=== PATIENT | female | born 1950 | race Caucasian/White ===

== ENCOUNTER 2018-07-09 13:00 | Inpatient (IN) | payer OTHER ==
--- OUTSIDE RECORDS SUMMARY | 2018-07-09 13:06 | XMS REPORT ---
:1950 [facility] Address [address] [place] [address] Dr. Kern [address] [place] [id number] Care Team Providers Name Role Phone Unavailable Unavailable Unavailable Problems This patient has no known problems. Allergies, Adverse Reactions, Alerts This patient has no known allergies or adverse reactions. Medications This patient has no known medications.
--- OUTSIDE RECORDS SUMMARY | 2018-07-09 13:06 | XMS REPORT | Clinical Summary ---
:1950 Author Organization [facility] Address [address] [place] [address] Care Team Providers Name Role Phone Satnam Isbell MD Primary Care Provider Allergies Active Allergy Reactions Severity Noted Date Comments Tape Adherent Other (See Comments) 11/01/2012 TEARS SKIN Medications Medication Sig Dispensed Refills Start Date End Date Status fluticasone-salmetero Inhale 2 puffs by 0 Active l (ADVAIR) 100-50 mouth via inhaler mcg/dose diskus 2 (two) times inhalerIndications: daily. COPD Associated with Chronic Bronchitis ALPRAZolam (XANAX XR) Take 0.5 mg by 0 Active 0.5 MG 24 hr tablet mouth 2 (two) times daily. tiotropium (SPIRIVA) Inhale 18 mcg 0 Active 18 mcg inhalation into the lungs capsule daily. ALBUTEROL SULFATE Inhale 2 puffs by 0 Active (VENTOLIN HFA INHL) mouth via inhaler 4 (four) times daily. levothyroxine Take 125 mcg by 0 Active (SYNTHROID, mouth daily. LEVOTHROID) 125 MCG tablet guaiFENesin (MUCINEX) Take 600 mg by 0 Active 600 mg 12 hr tablet mouth 2 (two) times daily. docusate sodium Take 100 mg by 0 Active (COLACE) 100 MG mouth 3 (three) capsule times daily. gabapentin Take 400 mg by 0 Active (NEURONTIN) 400 MG mouth 4 (four) capsuleIndications: times daily. Neuropathic Pain metoprolol Take 12.5 mg by 0 Active (LOPRESSOR) 25 MG mouth 2 (two) tablet times daily . oxyCODONE (OXYCONTIN) Take 40 mg by 0 Active 40 MG 12 hr tablet mouth every 12 (twelve) hours. predniSONE Take 10 mg (2 40 tablet 1 03/20/2016 Active (DELTASONE) 10 MG tabs) daily for 3 tablet days, and then 5 mg daily until told to stop by Pulmonary Medicine. traMADol (ULTRAM) 50 Take 1 tablet (50 20 tablet 0 03/20/2016 Active mg tablet mg total) by mouth every 8 (eight) hours as needed (moderate pain). Max Daily Amount: 150 mg escitalopram oxalate Take 1 tablet (10 30 tablet 1 03/20/2016 Active (LEXAPRO) 10 MG mg total) by tablet mouth daily. polyethylene glycol Take 17 grams 0 03/20/2016 Active (GLYCOLAX) 17 gram twice a day. packet tacrolimus (PROGRAF) 3 capsules AM/ 2 150 capsule 11 08/16/2016 Active 1 MG capsule capsules PM. Active Problems Problem Noted Date Anxiety 03/20/2016 Acute on chronic respiratory failure with hypoxia 03/20/2016 Elevated liver enzymes 03/20/2016 Slow transit constipation 03/20/2016 Chronic indwelling Sanchez catheter 03/20/2016 Hyponatremia 03/20/2016 Acute kidney injury 03/20/2016 Chronic diastolic CHF (congestive heart failure) 03/20/2016 Lung nodule 03/20/2016 COPD exacerbation 03/09/2016 Tibial fracture 05/17/2015 Immunosuppressed status 01/18/2014 Left bundle branch block 01/18/2014 Femur fracture, right 01/17/2014 Status post liver transplant 12/26/2012 Last Assessment & Plan: Stable LFT. Continue immunosuppresion Hepatitis C 12/26/2012 Last Assessment & Plan: HCV RNA undetectable 06/12. Likely has SVR. 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 Depression 12/26/2012 Last Assessment & Plan: Needs to see Dr. Baislio Cervical stenosis of spinal canal 11/20/2012 Last Assessment & Plan: S/p Laminectomy. To follow with Neurosurgery. Immunizations Name Dates Previously Given Next Due Influenza Three-TIV PF 5+ YRS 05/18/2015 Social History Tobacco Use Types Packs/Day Years Used Date Current Every Day Smoker 1 45 Smokeless Tobacco: Never Used Tobacco Cessation: Ready to Quit: Yes Alcohol Use Drinks/Week oz/Week Comments No Sex Assigned at Date Recorded Not on file Job Start Date Occupation Industry Not on file Not on file Not on file Travel History Travel Start Travel End No recent travel history available. Last Filed Vital Signs Not on file Plan of Treatment Health Maintenance Due Date Last Done Comments INFLUENZA VACCINE 01/28/2018 Implants Implanted Type Area Quarry Boss Device Shelf Model / Identifier Expiration Serial / Date Lot Sealant,Floseal Hemostatic Matrix 10ml - [id number] Cement/F N/A: Spine CARRIZALES 01/25/2014 [id number] / Implanted: Qty: 1 on 11/20/2012 by Micah Brown MD iller/Ad Cervical BIOSCIENCE / hesive FORMER FUSION [id number] MEDICAL Bone Graft,Sub Vitoss Foam Pack Bioactive 10cc - [id number] Cement/F N/A: Spine IRLANDA SPINE 05/30/2014 [id number] / Implanted: Qty: 1 on 11/20/2012 by Micah Brown MD iller/Ad Cervical / hesive [id number] K-Wire,Gamma3 Small [id number] - [id number] Fracture Right: Hip [place] 04/2018 [id number] / Implanted: Qty: 2 on 01/19/2014 by Ricky Suarez MD /[employer] / n [id number] Nail,Gamma3 Trochanteric Ti Kit [id number] 125d - [id number] Fracture Right: Irlanda 10/27/2018 [id number] / Implanted: Qty: 1 on 01/19/2014 by Ricky Suarez MD /[employer]ur [employer] / n [id number] Screw,Lag Gamma3 Ti 10.5x90mm - [id number] Fracture Right: [place] 2018 [id number] / Implanted: Qty: 1 on 01/19/2014 by Ricky Suarez MD /[employer] Fem[employer] / n [id number] Screw,Locking Fully Threaded 5x37.5mm Ti T2 - [id number] Fracture Right: Irlanda 07/27/2018 [id number] / Implanted: Qty: 1 on 01/19/2014 by Ricky Suarez MD /[employer] / n [id number] Screw,Polyaxial Canc Oasys 3.5x12mm - [id number] Spine N/A: Spine IRLANDA REBECA [id number] / Implanted: Qty: 8 on 11/20/2012 by Micah Brown MD Cervical / [id number] Gabriel,Oasys Ti 3.5x60mm - [id number] Spine N/A: Spine IRLANDA REBECA [id number] / Implanted: Qty: 2 on 11/20/2012 by Micah Brown MD Cervical / NOT AVAILABLE Lavern,Oasys - [id number] Spine N/A: Spine IRLANDA REBECA [id number] / Implanted: Qty: 8 on 11/20/2012 by Micah Brown MD Cervical / NOT AVAILABLE Results Not on fileafter 07/08/2017 Insurance Payer Benefit Plan / Group Subscriber ID Type Phone Address MEDICARE MEDICARE A B xxxxxxxxxx Medicare Advance Directives For more information, please contact:[address] [phone] Code Status Date Activated Date Inactivated Comments Full Code 03/09/2016 3:25 AM 03/20/2016 8:13 PM This code status was determined by: Patient Full Code 05/17/2015 8:01 PM 05/22/2015 4:28 PM This code status was determined by: Patient Full Code 01/17/2014 8:49 PM 01/23/2014 5:54 PM This code status was determined by: Patient Code ONE 11/20/2012 2:35 PM 11/26/2012 5:54 PM All possible means of support , including: cardiac massage, mechanical ventilation, and defibrillation will be used to support life.
[2018-07-09] MEDS ORDERED: CEFEPIME 1 GM/100 ML BAG IV ONE (13:55)
[2018-07-09] MEDS ORDERED: NA CHLORIDE 0.9% 2,000 ML ONE (13:55)
[2018-07-09] MEDS ORDERED: ATROPINE SULF 1 MG/10 ML SYR IV ONE (13:58)
[2018-07-09 14:02] LABS: Absolute Lymphocytes (CBC) 0.2 K/uL (0.7-4.9); Absolute Monocytes 0.3 K/uL (0.1-1.3); Absolute Neutrophil 12.7 K/uL (1.8-8.0); Basophils % 0.2 % (0-1.3); Eosinophils % 0.1 % (0-4.4); Hematocrit 30.9 % (36.0-45.0); Lymphocytes % 1.7 % (15.3-44.8); MPV 9.3 fL (7.6-11.3); Monocytes % 2.2 % (3.3-12.3); RBC Red Blood Cell Count 3.21 M/uL (3.86-4.86)
--- NOTE | 2018-07-09 14:20 | RAD REPORT ---
EXAM DESCRIPTION: CT - Head Brain Wo Cont - 07/09/2018 2:05 pm CLINICAL HISTORY: Hypotension, bradycardia, transient alteration of awareness COMPARISON: CT head July 2017 TECHNIQUE: Axial 5 mm thick images of the head were obtained without IV contrast. All CT scans are performed using dose optimization technique as appropriate and may include automated exposure control or mA/KV adjustment according to patient size. FINDINGS: No intracranial hemorrhage, mass, edema or shift of mid-line structures. No acute infarcti on changes seen. No abnormal extra-axial fluid collections. Atrophy and chronic ischemic changes are present matching the comparison. Ventricles are in proportion to volume loss. Partially visualized paranasal sinuses are clear. Right mastoid air cells are clear. There is partial opacification of the left mastoid air cells new from 2016. No acute bony findings. IMPRESSION: Atrophy and chronic ischemic change similar to comparison. No acute intracranial finding . Suspected left mastoiditis. Correlation is needed with any symptoms.
[2018-07-09 14:22] LABS: Protime INR 1.27
[2018-07-09 14:25] LABS: ALT/SGPT 21 U/L (12-78); AST/SGOT 13 U/L (15-37); Albumin 2.8 g/dL (3.4-5.0); Alkaline Phosphatase 121 U/L (45-117); BUN Blood Urea Nitrogen 94 mg/dL (7-18); Bicarbonate 37 mmol/L (21-32); Bilirubin Direct < 0.1 mg/dL (0-0.2); Bilirubin Total 0.3 mg/dL (0.2-1.0); CKMB Creatine Kinase MB 3.1 ng/mL (0.3-3.6); Creatine Phosphokinase 28 U/L (26-192); Glucose Level 143 mg/dL (74-106); Lipase 60 U/L (73-393); Potassium 5.5 mmol/L (3.5-5.1); Protein, Total 7.4 g/dL (6.4-8.2); Sodium Level 130 mmol/L (136-145); Troponin (Emerg Dept Use Only) 0.17 ng/mL (0.0-0.045)
--- NOTE | 2018-07-09 14:30 | RAD REPORT ---
EXAM DESCRIPTION: RAD - Chest Single View - 07/09/2018 2:15 pm CLINICAL HISTORY: Cough and congestion, hypotension, bradycardia, anorexia COMPARISON: July 2015 TECHNIQUE: AP portable chest image was obtained 1359 hours . FINDINGS: Lungs are fibrotic as a baseline. Focal mass density is present right suprahilar region. T his was not present on the prior study. Pleural effusion is present on the right relatively small in size. Wedge-shaped opacification in the medial right base could be atelectasis, infiltrate or a combi nation. There is a large left pleural effusion obscuring the left hemidiaphragm and left heart border . There is likely atelectasis at the left base. Heart size is mostly obscured probably enlarged. Uppe r lobe vasculature within normal limits. No pneumothorax. No acute bony abnormality seen. No acute ao rtic findings suspected. IMPRESSION: Large left pleural effusion with likely atelectasis in the left base. Mass and infiltrat e of the left base are not excluded. Infiltrate, atelectasis or a combination in the medial right lung base. Masslike density right suprahilar region. Mass an round pneumonia can have a similar appearance. Foll ow-up CT chest imaging would be recommended, preferably with IV contrast.
[2018-07-09] MEDS ORDERED: IPRATROPIUM BROM 0.5MG/2.5ML ONE (14:33)
[2018-07-09] MEDS ORDERED: ALBUTEROL 2.5 MG/3 ML NEB SOL ONE (14:33)
[2018-07-09 14:41] LABS: Thyroid Stimulating Hormone 2.87 uIU/mL (0.360-3.740)
[2018-07-09] MEDS ORDERED: NALOXONE 0.4 MG/ML VIAL ONE (14:44)
[2018-07-09] MEDS ORDERED: LORazepam 2 MG/ML VIAL ONE (15:08)
[2018-07-09] MEDS ORDERED: VANCOMYCIN/NS 1 gm 1 GM/250 ML BAG IVPB ONE (15:15)
--- NOTE | 2018-07-09 15:30 | ER ---
Nurse's Notes [facility] Name: Nyla Carreon Age: 67 yrs Sex: Female : 1950 Arrival Date: 07/09/2018 Time: 13:04 Bed 3 Private MD: Diagnosis: Non-ST elevation (NSTEMI) myocardial infarction;Altered mental status, unspecified Presentation: 07/09 13:09 Presenting complaint: EMS states: HYPOTENSIVE AND NATHAN, ANOREXIC x3 DAYS PER [facility] STAFF. Transition of care: patient was received from another setting of care (long-term care facility), [facility]. Onset of symptoms is unknown. Risk Assessment: Do you want to hurt yourself or someone else? Patient reports no desire to harm self or others. Initial Sepsis Screen: Does the patient meet any 2 criteria? Altered Mental Status. No. Patient's initial sepsis screen is negative. Does the patient have a suspected source of infection? Yes: Catheter related infection (Sanchez/dialysis/PICC/central line) If YES to both, name of provider notified: Pino Hameed MD. Care prior to arrival: None. 13:09 Method Of Arrival: EMS: [facility] bp 13:09 Acuity: BLADIMIR 2 bp Triage Assessment: 13:09 General: Appears unkempt, malnourished, Behavior is listless. Pain: Unable to use pain bp scale. Does not appear to understand pain scale. EENT: No deficits noted. Neuro: Level of Consciousness is obtunded, Oriented to none. Cardiovascular: Rhythm is sinus bradycardia. Respiratory: Airway is patent Respiratory effort is even, shallow, Respiratory pattern is regular, symmetrical. GI: No signs and/or symptoms were reported involving the gastrointestinal system. : Sanchez in place to gravity drainage Urine is cloudy. Derm: No deficits noted. Musculoskeletal: Circulation, motion, and sensation intact. Historical: - Allergies: 13:37 No Known Allergies; bp - Home Meds: 13:37 alprazolam 0.5 mg Oral Tb24 1 tab twice a day [Active]; aspirin 81 mg Oral chew 1 tab bp once daily [Active]; ascorbic acid (vitamin C) 500 mg tab [Active]; budesonide 0.5 mg/2 mL inhalation nbsp 2 mL 2 times per day [Active]; docusate sodium 100 mg Oral tab 1 tab 2 times per day [Active]; folic acid 1 mg Oral tab 1 tab once daily [Active]; furosemide 40 mg Oral tab 1 tab once daily [Active]; gabapentin 400 mg oral cap 1 cap every 6 hours [Active]; levothyroxine 125 mcg tab 1 tab once daily [Active]; metoprolol tartrate 25 mg Oral tab 1 tab 2 times per day [Active]; - PMHx: 13:37 Pneumonia; Hepatitis; Hypothyroidism; Anxiety; CHF; Renal Disease; bp - Immunization history:: Adult Immunizations up to date. - Social history:: Smoking status: Patient/guardian denies using tobacco, Patient/guardian denies using alcohol, street drugs, The patient lives with family, in a usp. - Ebola Screening: : Patient negative for fever greater than or equal to 101.5 degrees Fahrenheit, and additional compatible Ebola Virus Disease symptoms Patient denies exposure to infectious person Patient denies travel to an Ebola-affected area in the 21 days before illness onset No symptoms or risks identified at this time. - Family history:: not pertinent. Screenin:21 Abuse screen: Denies threats or abuse. Denies injuries from another. Nutritional bp screening: No deficits noted. Tuberculosis screening: No symptoms or risk factors identified. Fall Risk No fall in past 12 months (0 pts). Secondary diagnosis (15 points) Alzheimer's, No IV (0 pts). Ambulatory Aid- None/Bed Rest/Nurse Assist (0 pts). Gait- Normal/Bed Rest/Wheelchair (0 pts) Mental Status- Overestimates/Forgets Limitations (15 pts.). Total Fuentes Fall Scale indicates Low Risk Score (25-44 pts). Fall prevention measures have been instituted. Side Rails Up X 2 Placed close to Nursing Station Frequent Obs/Assesments occuring As available Patient and Family Educated on Fall Prevention Program and strategies. Assessment: 13:10 General: SEE TRIAGE NOTE. bp 14:00 Reassessment: PT CONTINUES LETHARGIC, PUPILS CONSTRICTED AND RESP SHALLOW. INFORMED. bp 15:00 Reassessment: AFTER NARCAN, PT MARKEDLY MORE AWAKE. AOx0, AGITATED AND PULLING AT PIV bp AND OXYGEN, INFORMED. 16:50 Reassessment: RT in room for ABG;. hj 16:55 Reassessment: provider decided to intubate pt with CO2 over 200's; RT paged and RSI kit hj prepped;. 17:00 Reassessment: provider in room; RT and nurses in room with needed equipments hj available;. Reassessment: etomidate 20/ succ 120 given;. 17:03 Reassessment: 7.5 ET tube inserted, 21 on the lip; auscultated with good breath sounds hj and good color;. 17:15 Reassessment: RESTRAINTS PLACED FOR PT SAFETY AND AIRWAY PROTECTION. PT AOx0, DOES NOT bp RESPOND TO VERBAL COMMANDS, UNABLE TO PARTICIPATE IN HEALTH CARE ACTIVITIES. RESTRAINT RELEASE CRITERIA EXPLAINED BUT PT UNABLE TO UNDERSTAND. 18:30 Reassessment: FAMILY AT B/S WITH MD. RESTRAINTS IN PLACE FOR AIRWAY PROTECTION AND PT bp SAFETY. PROPOFOL GTT \T\ 20MCG/KG/MIN. ICU ADMIT IN PROCESS. 19:00 General: Appears slender, Pt is sedated and intubated. Restraints remain in place for ea airway protection. Propofol at 20mcg/kg/min.. Respiratory: Airway via oral intubation Respiratory effort is even, unlabored, Respiratory pattern is regular, symmetrical. : Sanchez in place to gravity drainage. Derm: Skin is dry, Skin is pale, Skin temperature is cool Bear Hugger placed on pt. 20:21 Reassessment: Patient and/or family updated on plan of care and expected duration. Pain ea level reassessed. Pt remains sedated and intubated. No s/s of pain or discomfort noted at this time. Restraints remain in place. Pt on Bear Hugger. Report called to ICU. Vital Signs: 13:09 BP 94 / 49; Pulse 47; Resp 9; Temp 97.1; Pulse Ox 97% ; Weight 58.97 kg; bp 14:00 BP 94 / 52; Pulse 50; Resp 18; Pulse Ox 97% ; bp 15:00 BP 116 / 66; Pulse 56; Resp 15; Pulse Ox 97% ; bp 16:00 BP 108 / 76; Pulse 50; Resp 17; Pulse Ox 97% ; bp 17:00 BP 108 / 54; Pulse 45; Resp 17; Pulse Ox 100% ; bp 18:00 BP 121 / 91; Pulse 42; Resp 18; Pulse Ox 99% ; bp 19:15 BP 116 / 69; Pulse 43; Resp 16; Temp 90.8(R); Pulse Ox 100% on 40% FiO2 ETT vent; ea 19:45 BP 119 / 66; Pulse 43; Resp 16; Pulse Ox 100% on 40% FiO2 ETT vent; ea 20:00 BP 112 / 70; Pulse 46; Resp 16; Pulse Ox 100% on 40% FiO2 ETT vent; ea 21:00 BP 110 / 64; Pulse 49; Resp 16; Pulse Ox 100% on 40% FiO2 ETT vent; ea 19:15 Pt placed on bear hugger ea ED Course: 13:04 Patient arrived in ED. hj 13:06 Pino Hameed MD is Attending Physician. ma2 13:07 Lalo Burton, RN is Primary Nurse. bp 13:09 Arm band placed on. bp 13:11 Triage completed. bp 13:18 EKG done, by mixing technician. reviewed by Pino Hameed MD. vh 13:20 Inserted saline lock: 22 gauge in right antecubital area, using aseptic technique. bp Blood collected. 13:21 Patient has correct armband on for positive identification. Placed in gown. Bed in low bp position. Call light in reach. Side rails up X2. 13:40 Inserted saline lock: 20 gauge in left forearm, using aseptic technique. Blood ag collected. 13:45 Inserted saline lock: 20 gauge in left forearm, using aseptic technique. bp 14:02 CT completed. Pt tolerated procedure poorly. Patient taken to an exam room, Patient sw moved to CT via stretcher. Patient moved back from CT. 14:04 CT Head Brain wo Cont In Process Unspecified. EDMS 14:14 X-ray completed. Portable x-ray completed in exam room. Patient tolerated procedure jb2 well. 14:16 Chest Single View XRAY In Process Unspecified. EDMS 15:29 Rosy Brown MD is Hospitalizing Provider. ma2 17:18 Assisted provider with intubation using 7.5 mm ETT via oral route. ET tube secured at bp 21cm at the teeth. Set up intubation tray. Intubated by Pino Hameed MD Placement verified by CO2 detector w/ + color change, auscultating bilateral breath sounds, Patient tolerated well. 20:30 Patient admitted, IV remains in place. ea 21:19 Primary Nurse role handed off by Lalo Burton, RN ed1 Restraints: 17:15 Non-Violent Restraint: Order obtained. Initiated on July 09, 2018 at 17:15 Restraint bp Education provided to family/significant other/legally authorized lifeline representatives. Actions/Behavior observed: Confused/disoriented, has difficulty remembering/follow instructions, has impaired decision making, unable to follow instructions, repeated attempts to remove artifical airway/mechanical resp support, Less restrictive alternatives attempted: decrease environmental stimuli, 1:1 patient care, placed near Nurse station, reoriented to location, medications evaluated, lines/tubes covered, Alternative interventions: Ineffective. Clinical justification for use: airway protection, line protection, patient safety, Mental status: agitated/restless, confused, Cognition: poor judgement, poor safety awareness, poor attention/concentration, unable to follow commands, Circulation: Within defined parameters (based on Cardiovascular assessment) Skin integrity: Within defined parameters (based on Integumentary assessment) Signs of injury related to restraint: No injuries noted. Range of Motion (ROM): performed. Hydration/Food: patient declined. Elimination/Hygiene: with urinary catheter, Restraint status: Soft wrist restraint (Right) Started. Soft wrist restraint (Left) Started. Criteria to discontinue Restraint not met. Restraint continued. Administered Medications: 13:45 Drug: Cefepime 1 grams Route: IVPB; Rate: 200 ml/hr; Infused Over: 30 mins; Site: right bp forearm; 15:43 Follow up: IV Status: Completed infusion bp 13:59 Drug: Atropine 0.1 mg Route: IVP; Site: right forearm; bp 15:13 Follow up: Response: No adverse reaction bp 14:00 Drug: NS 0.9% (30 ml/kg) 30 ml/kg Route: IV; Rate: bolus; Site: left antecubital; hj 18:46 Follow up: IV Status: Completed infusion; IV Intake: 1769ml bp 14:30 Drug: Albuterol - atroVENT (3:1) (2.5 mg - 0.5 mg) 3 ml Route: Nebulizer; bp 15:17 Follow up: Response: No adverse reaction bp 14:30 Drug: NARcan 0.4 mg Route: IVP; Site: right antecubital; bp 16:01 Follow up: Response: Marked relief of symptoms bp 15:00 Drug: Ativan 2 mg Route: IVP; Site: right antecubital; bp 16:01 Follow up: Response: Marked relief of symptoms bp 15:43 Drug: vancoMYCIN 1 grams Route: IVPB; Infused Over: 2 hrs; Site: right antecubital; bp 16:05 Drug: Lovenox 80 mg Route: Sub-Q; Site: right lower abdomen; bp 16:17 Follow up: Response: No adverse reaction bp 16:12 Not Given (pt not tolerating po): Aspirin Chewable Tablet 324 mg PO once; 81 mg tablets bp x 4 17:00 Drug: Etomidate 20 mg Route: IVP; Site: left forearm; hj 17:19 Follow up: Response: No adverse reaction bp 17:00 Drug: Succinylcholine 120 mg Route: IVP; Site: left forearm; hj 17:32 Follow up: Response: No adverse reaction bp 17:45 Drug: Propofol 5 mcg/kg/min Route: IV; Rate: calculated rate; Site: right antecubital; bp Intake: 18:46 IV: 1769ml; Total: 1769ml. bp Outcome: 15:30 Decision to Hospitalize by Provider. ma2 20:41 Admitted to ICU accompanied by nurse, via stretcher, room 2, with oxygen, on monitor, ea with chart, Other Pt remains intubated, respiratory at bedside for assistance. Report called to Receiving nurse in ICU 20:41 Condition: stable ea 21:30 Patient left the ED. ea Signatures: Dispatcher [employer] EDMS Leonid Chávez Erika, RN RN ed1 Clarissa West Ana ag Warren, Shannon sw Joaquin, Henry, RN RN hj Antunez, Elena, RN RN ea Peltier, Brian, RN RN bp Alzahri, Mohammad, MD MD me2
--- NOTE | 2018-07-09 15:31 | EDPHYS ---
Physician Documentation [facility] Name: Nyla Carreon Age: 67 yrs Sex: Female : 1950 Arrival Date: 07/09/2018 Time: 13:04 Bed 3 Private MD: ED Physician Pino Hameed HPI: 07/09 13:20 This 67 yrs old Female presents to ER via EMS with complaints of Blood ma2 Pressure Problem. 13:20 This 67 yrs old Female presents to ER via EMS with complaints of Blood ma2 Pressure Problem. 13:20 The patient presents with decreased mental status, decreased responsiveness. Onset: The ma2 symptoms/episode began/occurred gradually, 3 day(s) ago. Possible causes: sepsis. Associated signs and symptoms: Pertinent negatives: ataxia, chest pain, diaphoresis. Current symptoms: In the emergency department the patient's symptoms are unchanged from the initial presentation. Patient's baseline: Neuro: alert but confused. The patient has experienced similar episodes in the past. Historical: - Allergies: 13:37 No Known Allergies; bp - Home Meds: 13:37 alprazolam 0.5 mg Oral Tb24 1 tab twice a day [Active]; aspirin 81 mg Oral chew 1 tab bp once daily [Active]; ascorbic acid (vitamin C) 500 mg tab [Active]; budesonide 0.5 mg/2 mL inhalation nbsp 2 mL 2 times per day [Active]; docusate sodium 100 mg Oral tab 1 tab 2 times per day [Active]; folic acid 1 mg Oral tab 1 tab once daily [Active]; furosemide 40 mg Oral tab 1 tab once daily [Active]; gabapentin 400 mg oral cap 1 cap every 6 hours [Active]; levothyroxine 125 mcg tab 1 tab once daily [Active]; metoprolol tartrate 25 mg Oral tab 1 tab 2 times per day [Active]; - PMHx: 13:37 Pneumonia; Hepatitis; Hypothyroidism; Anxiety; CHF; Renal Disease; bp - Immunization history:: Adult Immunizations up to date. - Social history:: Smoking status: Patient/guardian denies using tobacco, Patient/guardian denies using alcohol, street drugs, The patient lives with family, in a custodial. - Ebola Screening: : Patient negative for fever greater than or equal to 101.5 degrees Fahrenheit, and additional compatible Ebola Virus Disease symptoms Patient denies exposure to infectious person Patient denies travel to an Ebola-affected area in the 21 days before illness onset No symptoms or risks identified at this time. - Family history:: not pertinent. ROS: 13:20 Unable to obtain ROS due to altered mental status. ma2 15:30 Neck: Negative for injury, pain, and swelling. ma2 Exam: 13:20 Eyes: Pupils equal round and reactive to light, extra-ocular motions intact. Lids and ma2 lashes normal. Conjunctiva and sclera are non-icteric and not injected. Cornea within normal limits. Periorbital areas with no swelling, redness, or edema. Chest/axilla: Normal chest wall appearance and motion. Nontender with no deformity. No lesions are appreciated. Cardiovascular: Regular rate and rhythm with a normal S1 and S2. No gallops, murmurs, or rubs. Normal PMI, no JVD. No pulse deficits. Respiratory: Lungs have equal breath sounds bilaterally, clear to auscultation and percussion. No rales, rhonchi or wheezes noted. No increased work of breathing, no retractions or nasal flaring. Abdomen/GI: Soft, non-tender, with normal bowel sounds. No distension or tympany. No guarding or rebound. No evidence of tenderness throughout. 13:20 Neuro: Orientation: unable to test, Mentation: responsive to voice unable to follow commands. Vital Signs: 13:09 BP 94 / 49; Pulse 47; Resp 9; Temp 97.1; Pulse Ox 97% ; Weight 58.97 kg; bp 14:00 BP 94 / 52; Pulse 50; Resp 18; Pulse Ox 97% ; bp 15:00 BP 116 / 66; Pulse 56; Resp 15; Pulse Ox 97% ; bp 16:00 BP 108 / 76; Pulse 50; Resp 17; Pulse Ox 97% ; bp 17:00 BP 108 / 54; Pulse 45; Resp 17; Pulse Ox 100% ; bp 18:00 BP 121 / 91; Pulse 42; Resp 18; Pulse Ox 99% ; bp 19:15 BP 116 / 69; Pulse 43; Resp 16; Temp 90.8(R); Pulse Ox 100% on 40% FiO2 ETT vent; ea 19:45 BP 119 / 66; Pulse 43; Resp 16; Pulse Ox 100% on 40% FiO2 ETT vent; ea 20:00 BP 112 / 70; Pulse 46; Resp 16; Pulse Ox 100% on 40% FiO2 ETT vent; ea 21:00 BP 110 / 64; Pulse 49; Resp 16; Pulse Ox 100% on 40% FiO2 ETT vent; ea 19:15 Pt placed on bear hugger ea Procedures: 17:14 Intubation: Ventilated with 100% NRB prior to procedure. Intubated orally using # 4 ma2 Axel blade with 7.5 mm ETT. was successful on first attempt. Ventilated with ventilator. Tube secured with tape with ETT munoz Placement verified by CXR, Patient tolerated well. MDM: 13:06 Patient medically screened. ma2 13:20 Differential Diagnosis: alcohol intoxication, overdose, pneumonia, sepsis, UTI, volume ma2 depletion. 15:03 Data reviewed: vital signs, nurses notes. Counseling: I had a detailed discussion with oskar the patient and/or guardian regarding: the historical points, exam findings, and any diagnostic results supporting the discharge/admit diagnosis, the presence of at least one elevated blood pressure reading (>120/80) during this emergency department visit, the need for further work-up and treatment in the hospital. Response to treatment: the patient's symptoms have markedly improved after treatment. ED course: NSTEMI, EKG showing sinus bradycardia blood pressure is borderline, improved with ivf , pupils are pin pointed and her mentation improved with Narcan.. . 15:29 Physician consultation: Rosy Butler MD. ED course: improved with narcan has nstemi . ma 16:11 ED course: dr. butler advise to put admission orders under dr. slaughter and that she has osakr discussed the case with him and advise to order inpatients orders and antibiotics . 17:06 ED course: patient intubated for respiratory distress, and hypercapnia.. I updated dr. oskar Isbell about that . 17:07 ED course: i searched custodial note for code status, no mentions of DNR on nursing [facility] home or previous visit patient unable to answer questions and she has no known none reversible lung condition . 07/09 13:09 Order name: Urine Culture aa5 07/09 13:19 Order name: Basic Metabolic Panel [facility] 07/09 13:19 Order name: Blood Culture Adult (2) [facility] 07/09 13:19 Order name: CBC with Diff [facility] 07/09 13:19 Order name: Ckmb; Complete Time: 15:01 [facility] 07/09 13:19 Order name: CPK; Complete Time: 15:01 [facility] 07/09 13:19 Order name: Lactate; Complete Time: 15: [facility] 07/09 13:19 Order name: LFT's; Complete Time: 15:01 [facility] 07/09 13:19 Order name: Lipase; Complete Time: 15: [facility] 07/09 13:19 Order name: Procalcitonin; Complete Time: 15: [facility] 07/09 13:19 Order name: Protime (+inr); Complete Time: 15: [facility] 07/09 13:19 Order name: Ptt, Activated; Complete Time: 15: [facility] 07/09 13:19 Order name: Troponin (emerg Dept Use Only); Complete Time: 15: [facility] 07/09 13:19 Order name: Urine Microscopic Only [facility] 07/09 13:39 Order name: Basic Metabolic Panel; Complete Time: 15: EDMS 07/09 14:00 Order name: TSH; Complete Time: 15: [facility] 07/09 14:00 Order name: T4 Free; Complete Time: 15:01 [facility] 07/09 14:13 Order name: Urine Dipstick--Ancillary (enter results); Complete Time: 16:10 2 07/09 16:11 Order name: Arterial Blood Gas bp 07/09 16:16 Order name: Basic Metabolic Panel MS 07/09 16:16 Order name: Basic Metabolic Panel EDMS 07/09 16:16 Order name: CBC with Automated Diff EDMS 07/09 16:16 Order name: CBC with Automated Diff EDMS 07/09 16:16 Order name: NT PRO-BNP EDMS 07/09 16:16 Order name: NT PRO-BNP EDMS 07/09 16:16 Order name: Troponin I EDMS 07/09 16:16 Order name: Troponin I EDMS 07/09 16:16 Order name: Troponin I EDMS 07/09 16:22 Order name: Troponin I EDMS 07/09 16:22 Order name: Troponin I EDMS 07/09 13:19 Order name: Chest Single View XRAY; Complete Time: 15:01 pr2 07/09 13:19 Order name: Accucheck; Complete Time: 15:14 ma2 07/09 13:19 Order name: Cardiac monitoring; Complete Time: 13:23 ma2 07/09 13:19 Order name: EKG - Nurse/Tech; Complete Time: 13:22 ma2 07/09 13:19 Order name: IV Saline Lock - Large Bore; Complete Time: 14:00 ma2 07/09 13:19 Order name: Labs collected and sent; Complete Time: 14:00 ma2 07/09 13:19 Order name: O2 Per Protocol; Complete Time: 13:22 ma2 07/09 13:19 Order name: O2 Sat Monitoring; Complete Time: 13:22 ma2 07/09 13:19 Order name: Urine Dipstick-Ancillary (obtain specimen); Complete Time: 13:22 ma2 07/09 13:19 Order name: CT Head Brain wo Cont; Complete Time: 14:22 ma2 07/09 15:19 Order name: EKG Electrocardiogram EDMS 07/09 16:16 Order name: Regular EDMS 07/09 16:16 Order name: EKG Electrocardiogram EDMS 07/09 16:16 Order name: EKG Electrocardiogram EDMS 07/09 16:22 Order name: EKG Electrocardiogram EDMS 07/09 16:22 Order name: EKG Electrocardiogram EDMS 07/09 16:22 Order name: Troponin I EDMS 07/09 17:15 Order name: Chest Single View XRAY pr2 07/09 17:21 Order name: Restraint:Non-Violent; Complete Time: 17:55 bp 07/09 17:48 Order name: RAD EDMS Administered Medications: 13:45 Drug: Cefepime 1 grams Route: IVPB; Rate: 200 ml/hr; Infused Over: 30 mins; Site: right bp forearm; 15:43 Follow up: IV Status: Completed infusion bp 13:59 Drug: Atropine 0.1 mg Route: IVP; Site: right forearm; bp 15:13 Follow up: Response: No adverse reaction bp 14:00 Drug: NS 0.9% (30 ml/kg) 30 ml/kg Route: IV; Rate: bolus; Site: left antecubital; hj 18:46 Follow up: IV Status: Completed infusion; IV Intake: 1769ml bp 14:30 Drug: Albuterol - atroVENT (3:1) (2.5 mg - 0.5 mg) 3 ml Route: Nebulizer; bp 15:17 Follow up: Response: No adverse reaction bp 14:30 Drug: NARcan 0.4 mg Route: IVP; Site: right antecubital; bp 16:01 Follow up: Response: Marked relief of symptoms bp 15:00 Drug: Ativan 2 mg Route: IVP; Site: right antecubital; bp 16:01 Follow up: Response: Marked relief of symptoms bp 15:43 Drug: vancoMYCIN 1 grams Route: IVPB; Infused Over: 2 hrs; Site: right antecubital; bp 16:05 Drug: Lovenox 80 mg Route: Sub-Q; Site: right lower abdomen; bp 16:17 Follow up: Response: No adverse reaction bp 16:12 Not Given (pt not tolerating po): Aspirin Chewable Tablet 324 mg PO once; 81 mg tablets bp x 4 17:00 Drug: Etomidate 20 mg Route: IVP; Site: left forearm; hj 17:19 Follow up: Response: No adverse reaction bp 17:00 Drug: Succinylcholine 120 mg Route: IVP; Site: left forearm; hj 17:32 Follow up: Response: No adverse reaction bp 17:45 Drug: Propofol 5 mcg/kg/min Route: IV; Rate: calculated rate; Site: right antecubital; bp Disposition: 17:14 Critical Care:. ma2 Disposition: 07/09/18 15:30 Hospitalization ordered by Rosy Butler for Inpatient Admission. Preliminary diagnosis are Non-ST elevation (NSTEMI) myocardial infarction, Altered mental status, unspecified. - Bed requested for Intensive Care Unit. - Status is Inpatient Admission. ea - Condition is Stable. - Problem is new. - Symptoms are unchanged. UTI on Admission? No Critical care time excluding procedures: 17:14 Critical care time: Bedside Care: 30 minutes, Consultation: 20 minutes. Total time: 50 ma2 minutes Signatures: Dispatcher [employer] EDSandhya Christine Henry, RN RN hj Antunez, Elena, RN RN ea Peltier, Brian, RN RN bp Alzahri, Mohammad, MD MD ma2 Corrections: (The following items were deleted from the chart) 17:04 15:30 Hospitalization Ordered by Rosy Butler MD for Inpatient Admission. Preliminary ma2 diagnosis is Non-ST elevation (NSTEMI) myocardial infarction; Altered mental status, unspecified. Bed requested for Telemetry/MedSurg (Inpatient). Status is Inpatient Admission. Condition is Stable. Problem is new. Symptoms are unchanged. UTI on Admission? No. ma2 18:07 17:04 07/09/2018 15:30 Hospitalization Ordered by Rosy Butler MD for Inpatient bd Admission. Preliminary diagnosis is Non-ST elevation (NSTEMI) myocardial infarction; Altered mental status, unspecified. Bed requested for Intensive Care Unit. Status is Inpatient Admission. Condition is Stable. Problem is new. Symptoms are unchanged. UTI on Admission? No. ma2 21:30 18:07 07/09/2018 15:30 Hospitalization Ordered by Rosy Butler MD for Inpatient ea Admission. Preliminary diagnosis is Non-ST elevation (NSTEMI) myocardial infarction; Altered mental status, unspecified. Bed requested for Intensive Care Unit. Status is Inpatient Admission. Condition is Stable. Problem is new. Symptoms are unchanged. UTI on Admission? No. bd
[2018-07-09 15:56] LABS: Urine Blood TRACE (NEG); Urine Glucose NEGATIVE (NEG); Urine Protein 2+ (NEG); Urine Specific Gravity 1.025 (1.005-1.030)
[2018-07-09] MEDS ORDERED: ACETAMINOPHEN 500 MG TAB PO PRN (16:12)
[2018-07-09] MEDS ORDERED: ENOXAPARIN 80 MG/0.8 ML SQ ONE (16:25)
[2018-07-09] MEDS: AZITHROMYCIN IV 250 MG in NA CHLORIDE 0.9% 250 ML IVPB SCH (17:00)
[2018-07-09] MEDS ORDERED: RSI MEDICATION KIT IV ONE (17:05)
[2018-07-09] MEDS ORDERED: NA CHLORIDE 0.9% 1,000 ML ONE (17:05)
[2018-07-09 17:37] LABS: Arterial Blood Carboxyhemoglob 0.8 % (0-1.5); Blood Gas Oxyhemoglobin 96.8 % (94-97); Blood O2 Saturation 98.7 % (92-98.5)
--- NOTE | 2018-07-09 17:47 | RAD REPORT ---
EXAM DESCRIPTION: RAD - Chest Single View - 07/09/2018 5:41 pm CLINICAL HISTORY: tube placement Chest pain. COMPARISON: Chest Single View dated 07/09/2018; Chest Single View dated 08/03/2015 FINDINGS: Portable technique limits examination quality. Tip of the ET tube is above the champ. Small left pleural effusion is again noted. Right suprahilar density is again noted, without change since recent comparative study. Mildly impacted fracture the p roximal left humerus is present.
[2018-07-09] MEDS ORDERED: PROPOFOL 1,000 MG/100 ML VIAL IV ONE (17:57)
[2018-07-09 22:22] LABS: Blood Morphology Comment NOT SEEN (NOT SEEN); Platelet Estimate ADEQ
[2018-07-09 22:26] LABS: Urine Bacteria <20 /HPF (<20); Urine Culture Reflex Order NOT NEEDED; Urine Yeast MANY (NONE SEEN); Urine Yeast with Hyphae PRESENT
[2018-07-09 22:27] LABS: Urine RBC NONE SEEN /HPF (NONE SEEN)
[2018-07-10] MEDS ORDERED: PROPOFOL 1,000 MG/100 ML VIAL IV PRN (00:10)
[2018-07-10] MEDS ORDERED: NA CHLORIDE 0.9% 250 ML IV PRN (00:10)
[2018-07-10] MEDS: CEFTRIAXONE/SWI 1gm 1 GM/10 ML SYR IVP SCH ×3 (00:15→19:55)
[2018-07-10] MEDS: D5 0.45 NS 1,000 ML IV SCH ×3 (00:15→22:30)
--- NOTE | 2018-07-10 04:06 | HP ---
Date of Admission: 07/09/2018 History Of Present Illness: A 67-year-old female with multiple medical problems including liver leach splant status from hepatitis C back in 1998. She was in a [facility] and was brought by [facility] from the [facility]. The history from the emergency room physician and the nurse who received the patie nt from the [facility] people and with the [facility] papers is that the patient has pain for about 2-3 d ays, looked disoriented and feeling weak, and her blood pressure was not controlled. The patient was noted in the emergency room to have decreased responsiveness. The patient on alprazolam and it was thought that the patient may have been overmedicated on that medicine. She was given Narcan and as p er the ER the patient's mental status was awake and she was more alert. However with her ABGs that w ere drawn at 2 L nasal prong, the patient showed acute respiratory failure with hypoxia and hypercapn ia and so she was intubated. At this point, the patient is intubated on mechanical ventilation and s he is sedated. No more history or review of systems could be taken. Past Medical History: 1.As above liver transplant status. 2.Congestive heart failure. 3.Coronary artery disease. 4.Hypothyroidism. 5.Hypertension. 6.COPD from history of heavy smoking in the past. 7.Anxiety, for which the patient takes alprazolam. 8.Chronic renal insufficiency. Social History: Stopped smoking, used to be heavy smoker. No alcohol or IV drug abuse history. Family History: Noncontributing. Medications: Include alprazolam 0.5 mg p.o. b.i.d., aspirin 81 mg p.o. daily, ascorbic acid (vitamin C), budesonide inhalation b.i.d., folic acid 1 mg daily, furosemide 40 mg p.o. daily, gabapentin 400 mg p.o. q.6 hours, levothyroxine 125 mcg p.o. daily, metoprolol 25 mg p.o. b.i.d. Allergies: AT THIS TIME, NO KNOWN DRUG ALLERGIES. Physical Examination: General: The patient is intubated and sedated. Vital Signs: Blood pressure 110/65, pulse 50, temperature 97.1. Heart: Regular rate and rhythm. Chest: Bilateral crackles. Abdomen: Soft, benign, nontender. Bowel sounds are active. Extremities: No edema. No cyanosis. Peripheral pulses are felt. Neurological: The patient is sedated, however, she withdraws her extremities. Imaging/laboratory Data: Chest x-ray showed large left pleural effusion with atelectasis and also in filtrate and atelectasis in the medial right lung base, masslike density in the right suprahilar joseph on, or pneumonia can have the same appearance. Followup CT is recommended. Head CT: No acute changes. Left mastoiditis suspected. Laboratory Data: White cell count 13.2, hemoglobin 9.8, hematocrit 30.9, platelets 364. ABGs as men tioned. The patient with acute respiratory failure with hypercapnia. Chemistry, still pending. Pro lactin 0.90. TSH 2.87. PT 14.9, INR 1.27. Assessment And Plan: Acute respiratory failure with hypercapnia. The patient intubated. Most likel y secondary to pneumonia but possible masslike lesion. However, the patient is being admitted to the ICU. We will put her on Rocephin and vancomycin IV antibiotics and breathing treatments with albute rol and ipratropium. She was also put on azithromycin. We will do mechanical ventilation support. We will put her on IV fluid gentle hydration with D5 half-normal at 50 cc an hour. Blood cultures ar e pending. We will follow electrolytes also and chemistry and we will manage mechanical ventilation. Look orders for details. MFS/MODL Voice ID: [id number]
[2018-07-10 04:56] LABS: Absolute Lymphocytes (CBC) 0.8 K/uL (0.7-4.9); Absolute Monocytes 1.6 K/uL (0.1-1.3); Basophils % 0.4 % (0-1.3); Eosinophils % 0.1 % (0-4.4); Hematocrit 28.1 % (36.0-45.0); Lymphocytes % 5.3 % (15.3-44.8); MPV 9.6 fL (7.6-11.3); RBC Red Blood Cell Count 3.01 M/uL (3.86-4.86)
[2018-07-10 05:34] LABS: Magnesium 2.7 mg/dL (1.8-2.4); Potassium 4.7 mmol/L (3.5-5.1)
[2018-07-10 05:39] LABS: Arterial Blood Carboxyhemoglob 1.8 % (0-1.5); Blood Gas Oxyhemoglobin 95.5 % (94-97)
--- NOTE | 2018-07-10 08:13 | RAD REPORT ---
EXAM DESCRIPTION: RAD - Chest Single View - 07/10/2018 5:32 am CLINICAL HISTORY: ventilator Chest pain. COMPARISON: Chest Single View dated 07/09/2018; Chest Single View dated 07/09/2018; Chest Single View dated 08/03/2015 FINDINGS: Portable technique limits examination quality. Tip of the endotracheal tube is above chapm. Enteric tube descends into the upper abdomen. Little ov erall change is seen in the aeration of the lungs. Right suprahilar density remains unchanged. Heart size is mildly enlarged. Aortic atherosclerosis. Mildly impacted proximal left humerus fracture is st able. IMPRESSION: Stable chest since 07/09/2018 study.
[2018-07-10] MEDS ORDERED: ASPIRIN EC 81 MG TAB PO SCH (09:00)
[2018-07-10] MEDS: AZITHROMYCIN IV 250 MG in NA CHLORIDE 0.9% 250 ML IVPB SCH (09:11)
[2018-07-10] MEDS ORDERED: CALCIUM GLUC 10% INJ 9.3 MEQ in NA CHLORIDE 0.9% 100 ML IV ONE (11:00)
[2018-07-10] MEDS: MIDAZOLAM HCL 2 MG/2 ML INJ IV PRN (13:08)
[2018-07-10] MEDS: IPRATROPIUM BROM 0.5MG/2.5ML NEB PRN ×2 (14:40→17:46)
[2018-07-10] MEDS: ALBUTEROL 2.5 MG/3 ML NEB SOL NEB PRN ×2 (14:40→17:46)
--- NOTE | 2018-07-10 14:49 | PN ---
Subjective: Patient is still intubated. However, she is more awake because we went down on her beulah tion. Objective: Vital Signs: Blood pressure 120/50, pulse 65, temperature 98.7. Heart: Regular rate and rhythm. Chest: Crackles. Abdomen: Soft, benign. Bowel sounds are active. Extremities: No edema. No cyanosis. Peripheral pulses are felt. Neurological: Patient is alert however she is still under the effect of sedation and with mechanical ventilation. Laboratory Data: ABGs on SIMV with oxygen 35%, SIMV 14. She is breathing 16 breaths per minute. He r pH is 7.42, pCO2 38.6, PO2 is 98.1, saturation 98%. White cell count 14.5, hemoglobin 8.7, hematoc rit 28.1, platelets 259, neutrophils 83.2, calcium 6.7, BUN 95, creatinine 2.5. Assessment And Plan: 1.Pneumonia, bilateral, on IV antibiotics. We will continue those. 2.Hypocalcemia. We will give her calcium gluconate ampules IV. We will monitor that. 3.Acute renal failure, likely secondary to sepsis and volume depletion. We will continue gentle hyd ration. We will monitor that. 4.Acute respiratory failure, on mechanical ventilation. We will keep the patient 1 more day on the above mechanical ventilation settings, we will try to wean off tomorrow. Look orders for details. MFS/MODL Voice ID: [id number] Report ID: [id number]
[2018-07-10] MEDS ORDERED: ETOMIDATE 20 MG/10 ML VIAL IV ONE (16:24)
[2018-07-10] MEDS ORDERED: SUCCINYLCHOLINE 20 MG/ML (10 ML) IV ONE (16:24)
[2018-07-10] MEDS: ENOXAPARIN 30 MG/0.3 ML SQ SCH (19:55)
[2018-07-10] MEDS: FENTANYL CITR 100 MCG/2 ML IV PRN (20:31)
[2018-07-11] MEDS: LORazepam 2 MG/ML VIAL IV PRN ×3 (00:31→19:33)
[2018-07-11] MEDS: MIDAZOLAM HCL 2 MG/2 ML INJ IV PRN (02:51)
[2018-07-11] MEDS: FENTANYL CITR 100 MCG/2 ML IV PRN ×2 (03:51→11:43)
[2018-07-11 05:23] LABS: Arterial Blood Carboxyhemoglob 1.9 % (0-1.5); Blood Gas Oxyhemoglobin 83.4 % (94-97); Blood O2 Saturation 85.6 % (92-98.5)
[2018-07-11 05:50] LABS: Absolute Lymphocytes (CBC) 1.1 K/uL (0.7-4.9); Absolute Monocytes 0.8 K/uL (0.1-1.3); Absolute Neutrophil 13.8 K/uL (1.8-8.0); Basophils % 0.5 % (0-1.3); Hematocrit 33.2 % (36.0-45.0); Lymphocytes % 7.1 % (15.3-44.8); MPV 9.6 fL (7.6-11.3); Monocytes % 5.1 % (3.3-12.3)
[2018-07-11] MEDS: LEVOTHYROXINE SOD 0.125 MG TAB PO SCH (05:53)
[2018-07-11 06:04] LABS: Magnesium 2.6 mg/dL (1.8-2.4); Phosphorus 4.7 mg/dL (2.5-4.9); Potassium 3.8 mmol/L (3.5-5.1)
[2018-07-11] MEDS ORDERED: POTASSIUM 25 MEQ EFFERV TAB PO ONE (06:10)
--- NOTE | 2018-07-11 07:01 | RAD REPORT ---
EXAM DESCRIPTION: Leonardo Single View07/11/2018 6:47 am CLINICAL HISTORY: Shortness of breath COMPARISON: July 10 FINDINGS: Small to moderate left pleural effusion is suspected Small right pleural effusion present. No change in a right suprahilar opacity. Tubes remain in place
[2018-07-11] MEDS: IPRATROPIUM BROM 0.5MG/2.5ML NEB PRN (08:03)
[2018-07-11] MEDS: ALBUTEROL 2.5 MG/3 ML NEB SOL NEB PRN ×2 (08:03→14:26)
[2018-07-11 08:11] LABS: Platelet Estimate ADEQ; Urine White Blood Cell Casts OK
[2018-07-11 08:12] LABS: Blood Morphology Comment NOT SEEN (NOT SEEN)
[2018-07-11] MEDS: ASPIRIN 81 MG CHEWABLE TABLET PO SCH (09:53)
[2018-07-11] MEDS: CEFTRIAXONE/SWI 1gm 1 GM/10 ML SYR IVP SCH ×2 (09:53→20:05)
[2018-07-11] MEDS: MAGNESIUM OXIDE 400 MG TAB PO SCH (09:53)
[2018-07-11] MEDS: AZITHROMYCIN IV 250 MG in NA CHLORIDE 0.9% 250 ML IVPB SCH (09:54)
--- NOTE | 2018-07-11 10:31 | EKG ---
Test Date: 2018-07-09 Test Time: 13:04:19 Quill Layer: MIKI MEASUREMENT RESULTS: Intervals: Rate: 49 NM: 200 QRSD: 160 QT: 566 QTc: 511 Mead: P: 31 NM: 200 QRS: -48 T: -2 INTERPRETIVE STATEMENTS: Sinus bradycardia Left axis deviation Left bundle branch block Abnormal ECG Compared to ECG 08/03/2015 17:46:26 Sinus rhythm no longer present Electronically Signed On 07-10-18 08:12:14 CDT by Jf Pringle
[2018-07-11] MEDS: NA CHLORIDE 0.9% 1,000 ML IV SCH (16:00)
[2018-07-11] MEDS: ENOXAPARIN 30 MG/0.3 ML SQ SCH (16:00)
--- NOTE | 2018-07-11 21:13 | PN ---
Subjective: The patient is intubated. However, she looks better. Objective: Vital Signs: Blood pressure 130/55, pulse 80, temperature 98.7. Heart: Regular rate and rhythm. Chest: Bilateral crackles. Abdomen: Soft, benign. Bowel sounds are active. Extremities: No edema. No cyanosis. Peripheral pulses are felt. Neurological examination: The patient is alert, moves all extremities, intubated. Laboratory Data: ABGs on mechanical ventilation 35% O2, pH 7.41, pCO2 40.3, PO2 53.4, saturation 85. 6. White cell count 15.9, hemoglobin 10, hematocrit 33.2, platelets 242. Sodium 135, BUN 93, creatinine 2.69, calcium 7.0. Assessment And Plan: 1.Acute respiratory failure. The patient is improving. However, we will keep her one more day befo re start weaning her off, pending improved saturation. 2.Pneumonia. Blood cultures, no growth to date. Urine showed yeast 4+. 3.Acute renal failure, likely secondary to dehydration. We will change her IV fluids to normal sali ne at 75 cc an hour. 4.Anemia of chronic illness. Clinically, stable. 5.Look orders for details. MFS/MODL Voice ID: [id number] Report ID: [id number]
[2018-07-12] MEDS: NA CHLORIDE 0.9% 1,000 ML IV SCH (04:53)
[2018-07-12] MEDS: LEVOTHYROXINE SOD 0.125 MG TAB PO SCH (05:43)
[2018-07-12 05:58] LABS: Magnesium 2.7 mg/dL (1.8-2.4); Potassium 4.3 mmol/L (3.5-5.1)
[2018-07-12 06:18] LABS: Absolute Lymphocytes (CBC) 0.6 K/uL (0.7-4.9); Absolute Monocytes 0.6 K/uL (0.1-1.3); Absolute Neutrophil 14.9 K/uL (1.8-8.0); Basophils % 0.7 % (0-1.3); Eosinophils % 0.2 % (0-4.4); Hematocrit 29.8 % (36.0-45.0); Lymphocytes % 3.5 % (15.3-44.8); MPV 9.7 fL (7.6-11.3); Monocytes % 3.6 % (3.3-12.3); RBC Red Blood Cell Count 3.24 M/uL (3.86-4.86)
[2018-07-12] MEDS: IPRATROPIUM BROM 0.5MG/2.5ML NEB PRN ×5 (08:09→23:15)
[2018-07-12] MEDS: ALBUTEROL 2.5 MG/3 ML NEB SOL NEB PRN ×5 (08:09→23:15)
[2018-07-12] MEDS: ASPIRIN 81 MG CHEWABLE TABLET PO SCH (08:53)
[2018-07-12] MEDS: CEFTRIAXONE/SWI 1gm 1 GM/10 ML SYR IVP SCH ×2 (08:53→20:02)
[2018-07-12] MEDS: MAGNESIUM OXIDE 400 MG TAB PO SCH (08:53)
[2018-07-12 09:15] LABS: Platelet Estimate ADEQ
[2018-07-12 09:16] LABS: Blood Morphology Comment NOT SEEN (NOT SEEN)
[2018-07-12] MEDS: AZITHROMYCIN IV 250 MG in NA CHLORIDE 0.9% 250 ML IVPB SCH (10:00)
[2018-07-12] MEDS ORDERED: Pharmacy Consult 1 EA XX PRN (11:23)
--- NOTE | 2018-07-12 11:50 | RAD REPORT ---
EXAM DESCRIPTION: Leonardo Single View07/12/2018 11:40 am CLINICAL HISTORY: Shortness of breath COMPARISON: none FINDINGS: Worsening in diffuse bilateral pulmonary opacities right greater than left. Bilateral pleural effusions. The heart is normal size Endotracheal and nasogastric tubes remain in place IMPRESSION: Worsening in bilateral pulmonary opacities which could represent pneumonia or pulmonary edema
[2018-07-12] MEDS ORDERED: JEVITY 1.2 CAL LIQUID 1,000 ML BOT FT SCH (12:00)
[2018-07-12 12:22] LABS: Arterial Blood Carboxyhemoglob 1.8 % (0-1.5); Blood Gas Oxyhemoglobin 85.3 % (94-97); Blood O2 Saturation 87.6 % (92-98.5)
[2018-07-12] MEDS: VANCOMYCIN/NS 1 gm 1 GM/250 ML BAG IV SCH (13:06)
[2018-07-12] MEDS: LORazepam 2 MG/ML VIAL IV PRN ×2 (13:08→22:20)
[2018-07-12] MEDS ORDERED: FUROSEMIDE 20 MG/ 2ML VIAL IV ONE (13:10)
[2018-07-12] MEDS ORDERED: CALCIUM GLUC 10% INJ 9.3 MEQ in NA CHLORIDE 0.9% 100 ML IV ONE (13:16)
[2018-07-12] MEDS: NACHLORIDE 0.45% 1,000 ML IV SCH (14:32)
[2018-07-12] MEDS: METHYLPREDNISOLONE 40 MG INJ IV SCH (16:30)
[2018-07-12] MEDS: ENOXAPARIN 30 MG/0.3 ML SQ SCH (16:31)
--- NOTE | 2018-07-12 17:29 | PN ---
Subjective: The patient is alert and awake, on mechanical ventilation. Objective: Vital Signs: Blood pressure 140/55, pulse 87, temperature 97. Heart: Regular rate and rhythm. Chest: Bilateral crackles. Abdomen: Soft, benign. Bowel sounds are active. Extremities: No edema. No cyanosis. Peripheral pulses are felt. Neurological: Patient is alert, on mechanical ventilation. Moves all her extremities. Laboratory Data: Chest x-ray showed bilateral pulmonary opacities, worse than before, could be pneum onia versus pulmonary edema. Sodium 140, potassium 4.3, BUN 87, creatinine 2.44, calcium 7. ABGs on mechanical ventilation; SIMV 14, inspired oxygen 35, pH 7.30, pCO2 59.6, PO2 63.4, O2 saturation 87. 6%. Assessment And Plan: 1.Acute respiratory failure with pneumonia, probably worsening versus pulmonary edema secondary to p lacing the patient on normal saline. We are going to go ahead and give her 1 dose of Lasix and chavis e her IV fluids to half-normal saline at 60 cc an hour. Then I will go ahead also and start feeding, feeding through the NG tube. Continue the patient's current antibiotics for her pneumonia. 2.Type 2 diabetes. Fingersticks blood sugars noted. 3.We are going to also for the patient add IV Solu-Medrol and we will then add antibiotics, vancomyc in. We will monitor her electrolytes and ABGs. Hopefully can wean off the patient in [address] mechanical ventilation. 4.Acute renal failure, slightly better with hydration. We will keep monitoring that. Look orders f or details. MFS/MODL Voice ID: [id number] Report ID: [id number]
[2018-07-13] MEDS: FENTANYL CITR 100 MCG/2 ML IV PRN ×2 (00:16→12:59)
[2018-07-13] MEDS: METHYLPREDNISOLONE 40 MG INJ IV SCH ×3 (00:16→16:33)
[2018-07-13] MEDS: LORazepam 2 MG/ML VIAL IV PRN ×2 (02:03→14:00)
[2018-07-13 05:43] LABS: Arterial Blood Carboxyhemoglob 1.8 % (0-1.5); Blood O2 Saturation 95.2 % (92-98.5)
[2018-07-13] MEDS: LEVOTHYROXINE SOD 0.125 MG TAB PO SCH (05:49)
[2018-07-13] MEDS: NACHLORIDE 0.45% 1,000 ML IV SCH (05:59)
[2018-07-13 07:16] LABS: Magnesium 2.6 mg/dL (1.8-2.4); Phosphorus 5.1 mg/dL (2.5-4.9); Potassium 4.3 mmol/L (3.5-5.1)
[2018-07-13 07:24] LABS: Absolute Lymphocytes (CBC) 0.1 K/uL (0.7-4.9); Absolute Monocytes 0.2 K/uL (0.1-1.3); Basophils % 0.1 % (0-1.3); Hematocrit 28.1 % (36.0-45.0); Lymphocytes % 1.2 % (15.3-44.8); MPV 9.5 fL (7.6-11.3); Monocytes % 1.4 % (3.3-12.3); RBC Red Blood Cell Count 3.01 M/uL (3.86-4.86)
[2018-07-13] MEDS: ALBUTEROL 2.5 MG/3 ML NEB SOL NEB PRN ×5 (07:42→23:20)
[2018-07-13] MEDS: IPRATROPIUM BROM 0.5MG/2.5ML NEB PRN ×5 (07:43→23:20)
[2018-07-13] MEDS: AZITHROMYCIN IV 250 MG in NA CHLORIDE 0.9% 250 ML IVPB SCH (08:57)
[2018-07-13] MEDS: CEFTRIAXONE/SWI 1gm 1 GM/10 ML SYR IVP SCH ×2 (08:57→21:13)
[2018-07-13] MEDS: MAGNESIUM OXIDE 400 MG TAB PO SCH (08:57)
[2018-07-13] MEDS: ASPIRIN 81 MG CHEWABLE TABLET PO SCH (08:59)
--- NOTE | 2018-07-13 10:58 | RAD REPORT ---
EXAM DESCRIPTION: RAD - Chest Single View - 07/13/2018 7:01 am CLINICAL HISTORY: vented Chest pain. COMPARISON: Chest Single View dated 07/12/2018; Chest Single View dated 07/11/2018; Chest Single View dated 07/10/2018; Chest Single View dated 07/09/2018 FINDINGS: Portable technique limits examination quality. The tip of the ET tube appears to be in the right mainstem bronchus. About 2-3 cm of retraction would be suggested for better placement. Enteric tube descends into the upper abdomen. Bilateral pulmonary opacities are again noted, greater on the right, without significant change. Mild improvement in the size of the left pleural effusion noted. IMPRESSION: ET tube tip appears to be in the right mainstem bronchus as detailed. Consider marcela noguera.
[2018-07-13 13:04] LABS: Arterial Blood Carboxyhemoglob 1.4 % (0-1.5); Blood Gas Oxyhemoglobin 81.1 % (94-97); Blood O2 Saturation 82.6 % (92-98.5)
[2018-07-13] MEDS ORDERED: GLUCAGON 1 MG/VIAL IM PRN (14:53)
[2018-07-13] MEDS ORDERED: D50W 25 GM/50 ML SYRINGE IV PRN (14:53)
[2018-07-13] MEDS: INSULIN -REGULAR HUMAN 50 UNIT/0.5 ML ML IV SCH ×2 (16:33→21:12)
[2018-07-13] MEDS: ENOXAPARIN 30 MG/0.3 ML SQ SCH (16:33)
--- NOTE | 2018-07-13 16:33 | PN ---
Subjective: The patient is restful, on mechanical ventilation still. Objective: Vital Signs: Blood pressure 150/75, pulse 86, temperature 98.2. Heart: Regular rate and rhythm. Chest: Bilateral crackles. Abdomen: Soft. Benign. Neurologic: Alert, oriented, grossly intact. Extremities: No edema. No cyanosis. Peripheral pulses are felt. Laboratory Data: ABGs on mechanical ventilation, SIMV rate of 14, inspired oxygen 45%, pH 7.39, pCO2 45, PO2 78.1, saturation 95.2. Chemistry, BUN 83, creatinine 2.29, calcium 7.8. CBC; white cell co unt dropped to 11.3, hemoglobin 9.2, hematocrit 28.1, platelets 279. Assessment And Plan: 1.The patient had acute respiratory failure on mechanical ventilation, is doing much better today. We will try to wean her off and see if she seems also comfortable. 2.Pneumonia. We will continue the patient on current antibiotics including vancomycin, and she seem s to be responding to that. 3.Acute renal failure, improving. 4.The patient is getting to be more clinically stable. We will continue current treatment. We will try to wean her off. Look orders for details. MFS/MODL Voice ID: [id number] Report ID: [id number]
[2018-07-13] MEDS: GLUCERNA 1.2 CAL 1,000 ML BOT FT SCH (20:00)
[2018-07-14] MEDS: FENTANYL CITR 100 MCG/2 ML IV PRN ×2 (00:46→23:02)
[2018-07-14] MEDS: METHYLPREDNISOLONE 40 MG INJ IV SCH ×3 (00:51→17:49)
[2018-07-14] MEDS: NACHLORIDE 0.45% 1,000 ML IV SCH ×2 (02:34→16:00)
[2018-07-14] MEDS: LORazepam 2 MG/ML VIAL IV PRN ×3 (02:35→13:53)
[2018-07-14] MEDS: INSULIN -REGULAR HUMAN 50 UNIT/0.5 ML ML IV SCH (02:35)
[2018-07-14] MEDS: ALBUTEROL 2.5 MG/3 ML NEB SOL NEB PRN ×5 (03:30→23:31)
[2018-07-14] MEDS: IPRATROPIUM BROM 0.5MG/2.5ML NEB PRN ×6 (03:30→23:31)
[2018-07-14 05:59] LABS: Arterial Blood Carboxyhemoglob 1.2 % (0-1.5); Blood Gas Oxyhemoglobin 95.4 % (94-97); Blood O2 Saturation 97.4 % (92-98.5)
[2018-07-14] MEDS: LEVOTHYROXINE SOD 0.125 MG TAB PO SCH (06:03)
[2018-07-14 06:09] LABS: Magnesium 2.7 mg/dL (1.8-2.4); Phosphorus 4.5 mg/dL (2.5-4.9); Potassium 4.8 mmol/L (3.5-5.1)
--- NOTE | 2018-07-14 09:11 | RAD REPORT ---
EXAM DESCRIPTION: Leonardo Single View07/14/2018 6:09 am CLINICAL HISTORY: Chest pain COMPARISON: none FINDINGS: Endotracheal tube has been retracted with its tip 4.5 centimeters above the champ. Overall, no significant change in diffuse bilateral pulmonary opacities right greater than left. Pleu ral effusions are unchanged. Nasogastric tube is present within the stomach. IMPRESSION: No significant change in diffuse bilateral pulmonary opacities right greater than left Endotracheal tube has been retracted with its tip 4.5 centimeters above the champ
[2018-07-14] MEDS: ASPIRIN 81 MG CHEWABLE TABLET PO SCH (09:12)
[2018-07-14] MEDS: MAGNESIUM OXIDE 400 MG TAB PO SCH (09:12)
[2018-07-14] MEDS: CEFTRIAXONE/SWI 1gm 1 GM/10 ML SYR IVP SCH ×2 (09:12→20:23)
[2018-07-14] MEDS: AZITHROMYCIN IV 250 MG in NA CHLORIDE 0.9% 250 ML IVPB SCH (09:13)
[2018-07-14] MEDS ORDERED: GLUCAGON 1 MG/VIAL IM PRN (09:24)
[2018-07-14] MEDS ORDERED: D50W 25 GM/50 ML SYRINGE IV PRN (09:24)
[2018-07-14] MEDS: INSULIN -REGULAR HUMAN 50 UNIT/0.5 ML ML SQ SCH ×2 (11:51→17:49)
[2018-07-14] MEDS: VANCOMYCIN/NS 1 gm 1 GM/250 ML BAG IV SCH (11:51)
--- NOTE | 2018-07-14 17:20 | PN ---
Subjective: The patient is still on mechanical ventilation and attempts to wean her off. The patien t becomes tachycardic and tachypneic and could not tolerate the weaning off process, so we kept her o n mechanical ventilation. Objective: Vital Signs: Blood pressure 150/95, pulse 100, temperature 98.3. Heart: Tachycardic. Regular rate. Chest: Bilateral end-expiratory wheezing and crackles. Abdomen: Soft, nontender, nondistended. Bowel sounds normoactive. Extremities: No edema. No cyanosis. Peripheral pulses are felt. Neurologic: Alert, oriented, and moves all her extremities. Laboratory Data: Blood sugar fingersticks noted in the 200-300. Assessment And Plan: Acute respiratory failure. Unable to wean her off at this time. She is probab ly going to need a longer period of time to be weaned off. I have talked this with her and w e are going to ask long-term acute care facility consult. I think the patient needs to be in that fa cility. Meanwhile for her pneumonia, we will continue her current antibiotics and for her diabetes, we will continue her on sliding scale of regular insulin, continue tube feeding, and we will monitor her electrolytes and blood count. Look orders for details. MFS/MODL Voice ID: [id number] Report ID: [id number]
[2018-07-14] MEDS: ENOXAPARIN 30 MG/0.3 ML SQ SCH (17:49)
[2018-07-15] MEDS: NACHLORIDE 0.45% 1,000 ML IV SCH ×3 (00:14→20:46)
[2018-07-15] MEDS: INSULIN -REGULAR HUMAN 50 UNIT/0.5 ML ML SQ SCH ×4 (00:14→17:00)
[2018-07-15] MEDS: METHYLPREDNISOLONE 40 MG INJ IV SCH ×3 (00:14→17:00)
[2018-07-15] MEDS: LORazepam 2 MG/ML VIAL IV PRN (02:47)
[2018-07-15] MEDS: IPRATROPIUM BROM 0.5MG/2.5ML NEB PRN (04:05)
[2018-07-15] MEDS: ALBUTEROL 2.5 MG/3 ML NEB SOL NEB PRN ×2 (04:05→09:37)
[2018-07-15 05:29] LABS: Absolute Lymphocytes (CBC) 0.2 K/uL (0.7-4.9); Absolute Monocytes 0.3 K/uL (0.1-1.3); Absolute Neutrophil 8.9 K/uL (1.8-8.0); Basophils % 0.2 % (0-1.3); Hematocrit 22.1 % (36.0-45.0); Lymphocytes % 1.6 % (15.3-44.8); MPV 9.9 fL (7.6-11.3); RBC Red Blood Cell Count 2.37 M/uL (3.86-4.86)
[2018-07-15 05:41] LABS: Magnesium 2.8 mg/dL (1.8-2.4); Phosphorus 4.3 mg/dL (2.5-4.9); Potassium 5.1 mmol/L (3.5-5.1)
[2018-07-15] MEDS: LEVOTHYROXINE SOD 0.125 MG TAB PO SCH (05:52)
[2018-07-15 06:28] LABS: Arterial Blood Carboxyhemoglob 1.5 % (0-1.5); Blood Gas Oxyhemoglobin 91.6 % (94-97); Blood O2 Saturation 93.5 % (92-98.5)
--- NOTE | 2018-07-15 07:53 | RAD REPORT ---
EXAM DESCRIPTION: Leonardo Single View07/15/2018 6:59 am CLINICAL HISTORY: shortness of breath COMPARISON: July 14 FINDINGS: Endotracheal nasogastric tubes remain in place. Minimal improvement in bilateral pulmonary opacities has occurred. Small pleural effusions suspected IMPRESSION: Minimal improvement in diffuse bilateral pulmonary opacities
[2018-07-15] MEDS: MAGNESIUM OXIDE 400 MG TAB PO SCH (08:06)
[2018-07-15] MEDS: ASPIRIN 81 MG CHEWABLE TABLET PO SCH (08:06)
[2018-07-15] MEDS: CEFTRIAXONE/SWI 1gm 1 GM/10 ML SYR IVP SCH (08:06)
[2018-07-15] MEDS: AZITHROMYCIN IV 250 MG in NA CHLORIDE 0.9% 250 ML IVPB SCH (08:07)
--- NOTE | 2018-07-15 08:31 | P.CNS ---
Date of Consult: 07/15/18 Chief Complaint: Respiratory failure History of Present Illness: Patient is 67 years of age presented to this hospital with low blood pressure altered mental status Mink occurring for 3 days straight admitted intubated/ renal function has progressively worsened at condition has also worsened according to the nursing staff unable to wean and extubate on IV fluids and tube feeds in addition to antibiotics chest x-ray shows a pneumonia which is now more prominent on the right side she is unresponsive history of COPD multiple medical problems Allergies No Known Allergies Allergy (Verified 12/17/15 11:12) Home Medications: ALPRAZolam [Xanax] 0.5 mg PO BID 07/10/18 Acidophilus/Bifido Longum [Lactobacillus Capsule] 1 cap PO QID 07/10/18 Albuterol Inhaler [Ventolin Inhaler] 2 puff IH Q6H PRN 07/10/18 Arginine/Ascorbate Sod/Alyson AC [Arginaid Powder] 1 pkt PO BID 07/10/18 Ascorbic Acid [Vitamin C] 500 mg PO BID 07/10/18 Aspirin Chewable [Aspirin Chewable*] 81 mg PO DAILY 07/10/18 Budesonide [Pulmicort*] 2 ml IH BID 07/10/18 Cyanocobalamin [Vitamin B-12*] 500 mcg PO DAILY 07/10/18 Docusate Sodium [Stool Softener] 100 mg PO BID 07/10/18 Fluticasone/Salmeterol [Advair 250-50 Diskus] 1 puff IH BID 07/10/18 Folic Acid 1 mg PO DAILY 07/10/18 Furosemide [Lasix] 40 mg PO DAILY 07/10/18 Gabapentin [Neurontin] 400 mg PO QID 07/10/18 Ipratropium/Albuterol Sulfate [Iprat-Albut 0.5-3(2.5) mg/3 ml] 3 ml IH QID 07/10 Levothyroxine Sodium 125 mcg PO DAILY 07/10/18 Magnesium Oxide [Magnesium] 1 tab PO DAILY 07/10/18 Melatonin [Melatonin*] 6 mg PO BEDTIME 07/10/18 Metoprolol Tartrate [Lopressor*] 1 tab PO BID 07/10/18 Multivit-Min/Iron Fum/Folic AC [Cmzsd-Elwshpj-Tzecksbt Tablet] 1 tab PO DAILY Oxycodone HCl [Oxycontin] 20 mg PO TID 07/10/18 Tacrolimus [Prograf] 2 cap PO BID 07/10/18 Zinc 50 mg PO DAILY 07/10/18 predniSONE [Deltasone] 20 mg PO DAILY 07/10/18 traMADol HCL [Ultram*] 2 tab PO TID 07/10/18 - Social History Smoking Status: Never smoker Alcohol use: No CD- Drugs: No Caffeine use: No Place of Residence: [facility]irement Review of Systems is unable to be obtained Physical Examination Temp Pulse Resp BP Pulse Ox 98.8 F 96 H 15 140/78 96 07/15/18 04:00 07/15/18 06:00 07/15/18 06:00 07/15/18 06:00 07/15/18 06:00 General: Unresponsive Neck: Supple Respiratory: Clear to auscultation bilaterally, Diminished, Crackles/rales ( Crackles on the right side) Cardiovascular: No edema, Regular rate/rhythm, Normal S1 S2 Gastrointestinal: Normal bowel sounds, Soft and benign - Problems (1) Respiratory failure Current Visit: Yes Status: Acute Plan: Patient is 67 years of age admitted with low blood pressure altered mental status multiple medical problems including COPD she has a pneumonia on the right side cultures are all negative including sputum cultures recent sputum culture was also negative patient's renal function is improving patient is hypoxic hypercapnic and anemic from I have added meropenem Dc Rocephin and Zithromax continue with vancomycin maximize bronchodilator therapy continue with IV fluids creatinine is improving and IV thiamine urinalysis did not show any evidence of infection on admission thyroid function tests is satisfactory Qualifiers: Chronicity: unspecified
[2018-07-15] MEDS ORDERED: SODIUM CHLORIDE 0.9% 10ML INJ IV PRN (08:49)
[2018-07-15] MEDS ORDERED: ENOXAPARIN 30 MG/0.3 ML SQ SCH (09:00)
[2018-07-15] MEDS ORDERED: Meropenem 500 MG VIAL IV SCH (09:00)
[2018-07-15] MEDS: PANTOPRAZOLE 40 MG INJ IVP SCH (09:19)
[2018-07-15] MEDS: Meropenem 250 MG in NA CHLORIDE 0.9% 100 ML IV SCH ×2 (09:19→17:00)
[2018-07-15] MEDS: THIAMINE 200 MG/2 ML INJ IVP SCH (09:19)
[2018-07-15] MEDS: ARFORMOTEROL TARTRATE 15 MCG/2 ML VIAL.NEB NEB SCH ×2 (09:36→19:40)
[2018-07-15] MEDS: IPRATROPIUM BROM 0.5MG/2.5ML NEB SCH ×3 (09:37→19:40)
[2018-07-15 12:05] LABS: Arterial Blood Carboxyhemoglob 1.7 % (0-1.5); Blood Gas Oxyhemoglobin 87.7 % (94-97); Blood O2 Saturation 89.7 % (92-98.5)
--- NOTE | 2018-07-15 17:27 | PN ---
Subjective: The patient is still on mechanical ventilation. No new complaint today. Physical Examination: Vital Signs: Blood pressure 140/80, pulse 96, temperature 98.8. Heart: Regular rate and rhythm. Chest: Bilateral crackles with end-expiratory wheezing. Abdomen: Soft, benign. Bowel sounds are active. Extremities: No edema. No cyanosis. Peripheral pulses are felt. Neurological: Alert. Right now she was sedated, however she moves all her extremities. Laboratory Data: Hemoglobin 7.1, hematocrit 22.1, platelets 258, white cell count 9.4. BUN 103, cre atinine 2.16. Blood sugar fingersticks noted. ABGs, pH 7.41, pCO2 48, PO2 59, saturation 89.7% at 3 0%. Assessment And Plan: 1.Acute drop in hemoglobin and hematocrit, stress ulcer is likely, put the patient on Protonix and w e will transfuse her with 2 units of blood to improve her general condition to help with extubation p rocess if we can. 2.I appreciate Dr. Guzman's input about her pneumonia and respiratory failure to change her antibi otic to meropenem. We will follow his recommendations. 3.Type 2 diabetes. We will keep her on sliding scale. 4.Acute kidney failure. We will monitor her electrolytes and her renal function. Expect to improve with improvement in her general condition. Look orders for details. MFS/MODL Voice ID: [id number] Report ID: [id number]
[2018-07-16] MEDS: INSULIN -REGULAR HUMAN 50 UNIT/0.5 ML ML SQ SCH ×4 (00:22→18:00)
[2018-07-16] MEDS: Meropenem 250 MG in NA CHLORIDE 0.9% 100 ML IV SCH ×3 (00:22→16:32)
[2018-07-16] MEDS: METHYLPREDNISOLONE 40 MG INJ IV SCH (00:22)
[2018-07-16] MEDS: NACHLORIDE 0.45% 1,000 ML IV SCH (00:23)
[2018-07-16] MEDS: IPRATROPIUM BROM 0.5MG/2.5ML NEB SCH ×4 (01:50→19:26)
[2018-07-16 05:58] LABS: Arterial Blood Carboxyhemoglob 1.6 % (0-1.5); Blood Gas Oxyhemoglobin 90.2 % (94-97); Blood O2 Saturation 92.1 % (92-98.5)
[2018-07-16 06:00] LABS: Absolute Lymphocytes (CBC) 0.1 K/uL (0.7-4.9); Absolute Monocytes 0.4 K/uL (0.1-1.3); Absolute Neutrophil 8.6 K/uL (1.8-8.0); Basophils % 0.2 % (0-1.3); Hematocrit 21.9 % (36.0-45.0); Lymphocytes % 1.5 % (15.3-44.8); MPV 9.9 fL (7.6-11.3); Monocytes % 4.1 % (3.3-12.3); RBC Red Blood Cell Count 2.36 M/uL (3.86-4.86)
[2018-07-16 06:06] LABS: Magnesium 2.8 mg/dL (1.8-2.4); Phosphorus 4.3 mg/dL (2.5-4.9)
[2018-07-16 06:13] LABS: Potassium 6.1 mmol/L (3.5-5.1)
[2018-07-16] MEDS: LEVOTHYROXINE SOD 0.125 MG TAB PO SCH (06:45)
[2018-07-16] MEDS: ARFORMOTEROL TARTRATE 15 MCG/2 ML VIAL.NEB NEB SCH ×2 (07:28→19:26)
--- NOTE | 2018-07-16 08:24 | P.PN ---
Subjective Date of Service: 07/16/18 Chief Complaint: Respiratory failure Subjective: Improving (Patient is more alert today failed BiPAP weaning trial) Review of Systems is unable to be obtained Physical Examination - Vital Signs Temperature: 99 F Blood Pressure: 144/87 Pulse: 95 Respirations: 16 Pulse Ox (%): 99 - Physical Exam General: Alert Respiratory: Clear to auscultation bilaterally, Diminished Cardiovascular: Regular rate/rhythm, Edema Assessment & Plan - Problems (Diagnosis) (1) Respiratory failure Current Visit: Yes Status: Acute Plan: Patient admitted with respiratory failure right lung pneumonia cultures negative decrease PEEP to 5 tried to wean her off the ventilator hemodynamically stable Dc steroids Dc IV fluids renal function is very abnormal no improvement with IV fluids trial of Lasix blood sugar elevated Qualifiers: Chronicity: unspecified
[2018-07-16] MEDS: FUROSEMIDE 40 MG/4 ML VIAL IV SCH ×2 (08:55→18:06)
[2018-07-16] MEDS: PANTOPRAZOLE 40 MG INJ IVP SCH (08:55)
[2018-07-16] MEDS: THIAMINE 200 MG/2 ML INJ IVP SCH (08:56)
[2018-07-16] MEDS: MAGNESIUM OXIDE 400 MG TAB PO SCH (08:56)
[2018-07-16] MEDS ORDERED: SOD POLYSTYREN SUL 15 GM/60 ML UCUP PO ONE (11:42)
[2018-07-16] MEDS: VANCOMYCIN/NS 1 gm 1 GM/250 ML BAG IV SCH (12:00)
[2018-07-16] MEDS: HALOPERIDOL LACT 5 MG/ML INJ IV PRN (16:30)
--- NOTE | 2018-07-16 16:34 | PN ---
Subjective: No change in status. The patient is still intubated. Objective: Vital Signs: Blood pressure 140/85, pulse 88, temperature 99. Heart: Regular rate and rhythm. Chest: Bilateral crackles. Abdomen: Soft, benign. Bowel sounds are active. Extremities: No edema. No cyanosis. Neurologic: The patient is alert, moves all her extremities and has good eye contact. Laboratory Data: ABGs, pH 7.40, pCO2 47.5, pO2 64.5, saturation 92%. CBC, white cell count 9.1, hem oglobin 7.2, hematocrit 21.9, platelets 257. Chemistry, potassium 6.1, BUN 116, creatinine 2.34. Assessment And Plan: 1.Anemia. Hemoglobin is stable. I think the patient had stress ulcer with treating, but is stabili zed now. She is off anticoagulation. We will continue that. 2.Hyperkalemia with acute renal failure. We will go ahead and give the patient Kayexalate. We will Monitor her potassium. 3.Pneumonia and acute respiratory failure. Appreciate Dr. Guzman's input. Continue current antib iotics. Blood sugar fingersticks noted. The patient is on regular insulin sliding scale. Look elsi braswell for details. MFS/MODL Voice ID: [id number] Report ID: [id number]
[2018-07-16] MEDS: GLUCERNA 1.2 CAL 1,000 ML BOT FT SCH (20:26)
[2018-07-16] MEDS ORDERED: VANCOMYCIN/NS 1 gm 1 GM/250 ML BAG IV SCH (23:00)
[2018-07-17] MEDS: Meropenem 250 MG in NA CHLORIDE 0.9% 100 ML IV SCH ×3 (00:04→18:15)
[2018-07-17] MEDS: INSULIN -REGULAR HUMAN 50 UNIT/0.5 ML ML SQ SCH ×5 (00:04→23:49)
[2018-07-17] MEDS: IPRATROPIUM BROM 0.5MG/2.5ML NEB SCH ×4 (02:00→19:47)
[2018-07-17 05:13] LABS: Absolute Lymphocytes (CBC) 0.8 K/uL (0.7-4.9); Absolute Monocytes 0.9 K/uL (0.1-1.3); Absolute Neutrophil 12.8 K/uL (1.8-8.0); Basophils % 0.1 % (0-1.3); Eosinophils % 0.6 % (0-4.4); Hematocrit 22.8 % (36.0-45.0); Lymphocytes % 5.2 % (15.3-44.8); Monocytes % 6.4 % (3.3-12.3); RBC Red Blood Cell Count 2.46 M/uL (3.86-4.86)
[2018-07-17 05:34] LABS: Magnesium 2.8 mg/dL (1.8-2.4); Phosphorus 4.8 mg/dL (2.5-4.9); Potassium 5.4 mmol/L (3.5-5.1)
[2018-07-17] MEDS: LEVOTHYROXINE SOD 0.125 MG TAB PO SCH (06:16)
[2018-07-17 06:40] LABS: Blood Morphology Comment NOT SEEN (NOT SEEN); Platelet Estimate ADEQ
[2018-07-17] MEDS: ARFORMOTEROL TARTRATE 15 MCG/2 ML VIAL.NEB NEB SCH ×2 (08:10→19:47)
--- NOTE | 2018-07-17 08:45 | RAD REPORT ---
EXAM DESCRIPTION: Leonardo Single View07/17/2018 6:51 am CLINICAL HISTORY: Chest pain COMPARISON: July 15, 2018 FINDINGS: Endotracheal nasogastric tubes in good position Mild improvement in the bilateral pulmonary opacities. No other change noted IMPRESSION: Mild improvement in the bilateral pulmonary opacities
[2018-07-17] MEDS: FUROSEMIDE 40 MG/4 ML VIAL IV SCH (08:47)
[2018-07-17] MEDS: THIAMINE 200 MG/2 ML INJ IVP SCH (08:47)
[2018-07-17] MEDS: MAGNESIUM OXIDE 400 MG TAB PO SCH (08:48)
[2018-07-17] MEDS: PANTOPRAZOLE 40 MG INJ IVP SCH (08:48)
[2018-07-17] MEDS: HALOPERIDOL LACT 5 MG/ML INJ IV PRN ×2 (10:38→18:09)
--- NOTE | 2018-07-17 12:08 | P.PN ---
Subjective Date of Service: 07/17/18 Chief Complaint: Respiratory failure No change unable to wean and extubate patient is minimally responsive off propofol and other sedative so only getting Haldol p.r.n. renal function is worse chest x-ray shows an improvement patient is on minimal oxygen Review of Systems is unable to be obtained Physical Examination - Vital Signs Temperature: 97 F Blood Pressure: 113/54 Pulse: 67 Respirations: 14 Pulse Ox (%): 98 - Physical Exam General: Unresponsive Respiratory: Clear to auscultation bilaterally Cardiovascular: No edema, Regular rate/rhythm Assessment & Plan - Problems (Diagnosis) (1) Respiratory failure Current Visit: Yes Status: Acute Plan: Patient admitted with respiratory failure presumed pneumonia chest x-ray has improved renal function is worse cultures are so far negative vital signs stable unable to wean and extubate will discuss with the daughter regarding terminal weaning recheck pro calcitonin Qualifiers: Chronicity: unspecified (2) Pneumonia Current Visit: Yes Status: Acute Plan: Patient has a pneumonia at which seems to be improving predominantly on the right side white count still mildly elevated Qualifiers: Laterality: right Lung location: unspecified part of lung
[2018-07-17] MEDS ORDERED: SOD POLYSTYREN SUL 15 GM/60 ML UCUP PO ONE (12:18)
[2018-07-17] MEDS ORDERED: NA CHLORIDE 0.9% 250 ML ONE (12:52)
--- NOTE | 2018-07-17 13:24 | RAD REPORT ---
EXAM DESCRIPTION: US - Renal Ultrasound-Complete - 07/17/2018 1:03 pm CLINICAL HISTORY: . Acute and chronic renal failure COMPARISON: None. FINDINGS: The right kidney measures 8 centimeters with an increased echotexture The left kidney measures 8 centimeters with an increased echotexture Hydronephrosis is not seen. Bladder is not well evaluated as it is decompressed Small amount of ascites IMPRESSION: Increased renal echotexture consistent with parenchymal disease
[2018-07-17] MEDS ORDERED: NA CHLORIDE 0.9% 250 ML IV SCH (14:00)
--- NOTE | 2018-07-17 16:13 | PN ---
Subjective: The patient is seen on mechanical ventilation. No significant change. Objective: Vital Signs: Blood pressure 115/55, pulse 67, temperature 97. Heart: Regular rate and rhythm. Chest: Bilateral crackles. Abdomen: Soft, benign. Bowel sounds are active. Extremities: No edema. No cyanosis. Peripheral pulses are felt. Neurologic: Patient is right now sedated. She moves all her extremities. Laboratory Data: White cell count 14.6, hemoglobin 7.4, hematocrit 22.8, platelets 278. Potassium 5 .4, BUN 122, creatinine 2.36. Blood sugar fingersticks noted. Assessment And Plan: 1.Acute respiratory failure, hard to wean off mechanical ventilation family waiting on family to dec elizabeth about that with the patient's and social and political studies professor involved. Meanwhile, continue set up mechanic al ventilation support. 2.Anemia, likely from blood loss, possible gastrointestinal. We will go ahead and transfuse 1 unit of blood. 3.Acute renal failure, likely from sepsis and poor general condition. 4.We are awaiting on family decision about DNR and about holding withdrawal. From that standpoint p ending the understanding of the patient's wishes and what they wanted to do. Meanwhile, continue cur rent support and treatment. MFS/MODL Voice ID: [id number] Report ID: [id number]
[2018-07-17 20:26] LABS: Hematocrit 27.5 % (36.0-45.0)
--- NOTE | 2018-07-17 20:41 | RAD REPORT ---
EXAM DESCRIPTION: RAD - Abdomen 1 View (KUB) - 07/17/2018 7:10 pm CLINICAL HISTORY: OG tube placement Pain COMPARISON: No comparisons FINDINGS: The tip of the enteric tube is in the stomach.
[2018-07-18] MEDS: Meropenem 250 MG in NA CHLORIDE 0.9% 100 ML IV SCH ×3 (00:04→17:00)
[2018-07-18] MEDS: IPRATROPIUM BROM 0.5MG/2.5ML NEB SCH ×4 (01:25→20:00)
[2018-07-18] MEDS: ALBUTEROL 2.5 MG/3 ML NEB SOL NEB PRN ×2 (01:25→13:57)
[2018-07-18] MEDS: HALOPERIDOL LACT 5 MG/ML INJ IV PRN (03:58)
[2018-07-18] MEDS: INSULIN -REGULAR HUMAN 50 UNIT/0.5 ML ML SQ SCH ×3 (05:42→18:00)
[2018-07-18] MEDS: LEVOTHYROXINE SOD 0.125 MG TAB PO SCH (05:42)
[2018-07-18] MEDS: ARFORMOTEROL TARTRATE 15 MCG/2 ML VIAL.NEB NEB SCH ×2 (07:38→20:00)
[2018-07-18 07:44] LABS: Absolute Lymphocytes (CBC) 0.5 K/uL (0.7-4.9); Absolute Monocytes 0.5 K/uL (0.1-1.3); Absolute Neutrophil 12.6 K/uL (1.8-8.0); Basophils % 0.1 % (0-1.3); Eosinophils % 0.7 % (0-4.4); Hematocrit 27.8 % (36.0-45.0); Lymphocytes % 3.6 % (15.3-44.8); MPV 9.9 fL (7.6-11.3); Monocytes % 3.9 % (3.3-12.3)
[2018-07-18 07:56] LABS: Magnesium 2.7 mg/dL (1.8-2.4); Phosphorus 5.8 mg/dL (2.5-4.9); Potassium 4.5 mmol/L (3.5-5.1)
--- NOTE | 2018-07-18 08:11 | RAD REPORT ---
EXAM DESCRIPTION: RAD - Chest Single View - 07/18/2018 6:35 am CLINICAL HISTORY: resp failure Chest pain. COMPARISON: Abdomen 1 View (KUB) dated 07/17/2018; Chest Single View dated 07/17/2018; Chest Single Vi ew dated 07/15/2018; Chest Single View dated 07/14/2018 FINDINGS: Portable technique limits examination quality. Tip of the ET tube is above the champ. Enteric tube descends into the stomach. Extensive bilateral p ulmonary opacities again noted with bilateral pleural effusions, small, appearing essentially unchang ed. Heart size is mildly prominent.
[2018-07-18] MEDS: THIAMINE 200 MG/2 ML INJ IVP SCH (08:17)
[2018-07-18] MEDS: PANTOPRAZOLE 40 MG INJ IVP SCH (08:17)
[2018-07-18] MEDS: MAGNESIUM OXIDE 400 MG TAB PO SCH (08:17)
--- NOTE | 2018-07-18 08:31 | P.PN ---
Subjective Date of Service: 07/18/18 Chief Complaint: Respiratory failure Patient is alert responsive and cooperative again failed ventilator weaning trial yesterday Review of Systems is unable to be obtained Physical Examination - Vital Signs Temperature: 98.0 F Blood Pressure: 141/82 Pulse: 86 Respirations: 16 Pulse Ox (%): 100 - Physical Exam General: Alert, Oriented x3 Respiratory: Clear to auscultation bilaterally Cardiovascular: No edema, Regular rate/rhythm Assessment & Plan - Problems (Diagnosis) (1) Respiratory failure Current Visit: Yes Status: Acute Plan: Patient admitted with respiratory failure and renal function improving although BUN is still elevated pro calcitonin level is normal chest x-ray shows bilateral opacities plan to wean off the ventilator Dc vancomycin continue with meropenem Dc Protonix patient is not at risk for GI bleeding he is DVT prophylaxis patient is on minimal oxygen Qualifiers: Chronicity: unspecified (2) Pneumonia Current Visit: Yes Status: Acute Plan: Patient has a pneumonia at which seems to be improving predominantly on the right side white count still mildly elevated Qualifiers: Laterality: right Lung location: unspecified part of lung
[2018-07-18] MEDS ORDERED: FUROSEMIDE 40 MG/4 ML VIAL IV SCH (09:00)
[2018-07-18 09:14] LABS: Blood Morphology Comment NOT SEEN (NOT SEEN); Platelet Estimate ADEQ; Urine White Blood Cell Casts OK
--- NOTE | 2018-07-18 16:09 | PN ---
Subjective: The patient is well, alert, good eye movement, and she answered nodding her head to ques tions. Physical Examination: Vital Signs: Blood pressure 140/82, pulse 86, temperature 98. Heart: Regular rate and rhythm. Chest: Bilateral expiratory wheezing. Abdomen: Soft, nontender. Bowel sounds are active. Extremities: No edema. No cyanosis. Peripheral pulses are felt. Neurologic: Alert. The patient noted that knew all her doctor and she is in the hospital. She nodd ed yes with that. She is intubated and she moves all her extremities. Chest X-ray: No acute change and has bilateral pulmonary opacities. Laboratory Data: Hemoglobin stable at 9.0 after 1 unit transfusion, hematocrit 27.8, platelets 259, white cell count 13.7. Assessment And Plan: 1.Anemia, stable. No evidence of acute bleeding at this time, likely iron deficiency. She may have had a stress ulceration that has stopped. 2.Acute respiratory failure with pneumonia. Continue current antibiotics. Still trying to wean the patient off and pending family and patient's decision about keeping her on mechanical ventilation. 3.Type 2 diabetes. We will keep the patient on insulin sliding scale. Look orders for details. MFS/MODL Voice ID: [id number] Report ID: [id number]
[2018-07-18] MEDS ORDERED: LORazepam 2 MG/ML VIAL IV PRN (16:34)
[2018-07-18] MEDS ORDERED: MORPHINE 2 MG/ML SYR IV PRN (16:34)
[2018-07-18] MEDS ORDERED: SCOPOLAMINE HYDROBROMIDE PATCH TD ONE (16:45)
[2018-07-18] MEDS ORDERED: ENOXAPARIN 30 MG/0.3 ML SQ SCH (17:00)
--- NOTE | 2018-07-19 02:34 | CON ---
Date of Consultation: 07/18/2018 Chief Complaint: Shortness of breath. Reason For Consult: Acute kidney injury. History Of Present Illness: The patient is unable to provide history. History is obtained mainly from the chart. A 67-year-old woman with past medical history of liver transplant due to hepatitis C, liver cirrhosis back in 1998, on tacrolimus. Congestive heart failure, hypothyroidism, hypertension, COPD, chronic renal failure. The patient was admitted for shortness of breath of 3 days duration. The patient was hypoxic and required intubation. The patient's creatinine was 1.5 in April trending up to 2.7 and BUN of 121. Right now the patient is alert, not in distress, nonoliguric, nausea, vomiting. No diarrhea. Review of Systems: As above. Past Medical History: As in HPI. Social History: Ex-smoker. No alcohol or other drug abuse. Family History: Noncontributory. Medications: See MAR. Allergies: NO KNOWN DRUG ALLERGIES. Physical Examination: General: The patient is intubated, no distress. Chest: Decreased air entry bilaterally. Heart: Regular rate and rhythm. Normal S1 and S2. Abdomen: Soft, nontender. Extremities: Left arm swelling. Laboratory Data: Labs are significant for white count 13.7, hemoglobin of 9. Sodium 145, bicarb 33, BUN 121, creatinine 2.4, GFR of 20, glucose 205, calcium 7.5, and albumin of 2.8. Assessment And Plan: 1. Chronic kidney injury and chronic kidney disease. Creatinine in April was 1.5, right now creatinine is up to 2.7 with BUN 121. possibly due to fluid overload and high protein from tube feeding. We will reduce tube feeding. 2. Due to uremia, the patient may require hemodialysis, but due to her overall condition, the risks is outweigh the benefit. I discussed this with the . Waiting for family decision tomorrow regarding her goal of care. no need for urgent HD at this time 3. Respiratory failure, failed extubation. Continued on vent. 4. Pneumonia, improving. 5. Congestive heart failure. The patient is responding to Lasix. 6. History of liver transplant, off tacrolimus at the moment. Overall poor prognosis. NERIS/SOURAV Voice ID: [id number] Report ID: [id number] VIRGIE
--- NOTE | 2018-07-22 08:37 | DS ---
Date of Discharge: 07/19/2018 History Of Present Illness: A 67-year-old female who is a liver transplant patient who was admitted to the hospital because of acute respiratory failure secondary to pneumonia. Past Medical History: As per admit note. Social History: As per admit note. Family History: As per admit note. Medications: As per admit note. Allergies: PER ADMIT NOTE. Physical Examination: As per admit note. Diagnostic Data: As per admit note. Hospital Course: The patient was admitted to the hospital ICU after she has been intubated in the em ergency room because of acute respiratory failure and hypoxia. The patient was put on IV antibiotic and mechanical ventilation, and we followed her electrolytes and her blood count. The patient gradua lly improved from the standpoint of her ammonia and her ABGs showed improvement on mechanical ventila tion; however, multiple trials to wean the patient off the mechanical ventilation were failed because the patient could not tolerate breathing on her own, so we kept her on mechanical ventilation. At o ne point, her hemoglobin had dropped to 7.1. We went ahead and transfused her with 1 unit of packed red blood cells to improve her general condition, to help weaning her off, probable stress ulcer, and after the transfusion. Also, we managed her for her chronic medical illnesses . We then put her on tube feeding and managed her fluid status. She showed also acute renal failure that was thought secondary to her poor general condition and overload. We asked Dr. Lakia butts after a few days to see the patient and manage her with us and put her on meropenem IV antibiotic and managed her with us; however, the patient still was hard to wean off the mechanical ventilation. Nephrology also was requested to see the patient because of her renal failure. They thought that t he patient is responding to IV Lasix. During all this, the family has indicated that the patient did not want to be resuscitated should her heart stops or she stops breathing. However, she was intubat ed at that time and Assistant Commissioner were working with us including this. The patient then was ____ trial of an hour to wean her off mechanical ventilation, she tolerated that well, and she comple kun the criteria to be extubated, and the patient was extubated. After that, the patient and the bobby high have indicated that they want the patient to be DNR, and so the patient was put on the DNR status . After that, the patient was breathing on her own for some hours. She became tired again, put her on oxygen protocol, but no intubation, no resuscitation, and the patient . MFS/MODL Voice ID: [id number] Report ID: [id number]
== END 2018-07-19 04:15 | disposition expired | DRG 870 ==
LOC: ER 13:00 → ERHOLD 16:15 → 3RD-ICU 20:30
PROVIDERS: ADMIT Internal Medicine; ATTEND Internal Medicine
PROC: 5A1955Z Respiratory Ventilation, Greater than 96 Consecutive Hours (ICD-10-PCS; principal; 2018-07-09)
PROC: 0BH17EZ Insertion of Endotracheal Airway into Trachea, Via Natural or Artificial Opening (ICD-10-PCS; 2018-07-09)
PROC: 0DH67UZ Insertion of Feeding Device into Stomach, Via Natural or Artificial Opening (ICD-10-PCS; 2018-07-09)
PROC: 3E0G76Z Introduction of Nutritional Substance into Upper GI, Via Natural or Artificial Opening (ICD-10-PCS; 2018-07-12)
PROC: 30233N1 Transfusion of Nonautologous Red Blood Cells into Peripheral Vein, Percutaneous Approach (ICD-10-PCS; 2018-07-17)
DX: A41.9 Sepsis, unspecified organism (principal); J18.9 Pneumonia, unspecified organism; J96.01 Acute respiratory failure with hypoxia; J96.02 Acute respiratory failure with hypercapnia; I50.23 Acute on chronic systolic (congestive) heart failure; G92 Toxic encephalopathy; N17.9 Acute kidney failure, unspecified; Z94.4 Liver transplant status; I13.0 Hypertensive heart and chronic kidney disease with heart failure and stage 1 through stage 4 chronic kidney disease, or unspecified chronic kidney disease; N18.4 Chronic kidney disease, stage 4 (severe); Z94.0 Kidney transplant status; E44.0 Moderate protein-calorie malnutrition; Z68.1 Body mass index [BMI] 19.9 or less, adult; R65.20 Severe sepsis without septic shock; B18.2 Chronic viral hepatitis C; I46.9 Cardiac arrest, cause unspecified; E87.70 Fluid overload, unspecified; Z66 Do not resuscitate; Z78.1 Physical restraint status; E03.9 Hypothyroidism, unspecified; J44.9 Chronic obstructive pulmonary disease, unspecified; Z87.891 Personal history of nicotine dependence; F41.9 Anxiety disorder, unspecified; E83.51 Hypocalcemia; E86.0 Dehydration; E11.22 Type 2 diabetes mellitus with diabetic chronic kidney disease; E87.5 Hyperkalemia; T42.4X5A Adverse effect of benzodiazepines, initial encounter; Y92.129 Unspecified place in nursing home as the place of occurrence of the external cause; K27.9 Peptic ulcer, site unspecified, unspecified as acute or chronic, without hemorrhage or perforation; D63.8 Anemia in other chronic diseases classified elsewhere; K74.60 Unspecified cirrhosis of liver
CPT/HCPCS: 31500; 36415; 70450; 71045; 74018; 76770; 80048; 80076; 80202; 81003; 81015; 82550; 82553; 82805; 82962; 83605; 83690; 83735; 83880; 84100; 84145; 84439; 84443; 84484; 85014; 85018; 85025; 85610; 85730; 86850; 86900; 86901; 87040; 87070; 87086; 87088; 87205; 93005; 94002; 94003; 94640; 94660; 94760; 96372; 99291; C9113; J0330; J0456; J0610; J0692; J0696; J1630; J1650; J1940; J2250; J2310; J2704; J2920; J3010; J3370; J3411; J7030; J7605; P9016